=== PATIENT | female | born 1945 | race African-American/Black ===

== ENCOUNTER 2018-02-13 11:49 | Emergency (ER) | payer MEDICARE, MEDICAID ==
[~2018-02-13] VITALS: Ht 165.1 cm; Wt 78.0 kg
[~2018-02-13 11:49] MED LIST: COLACE100 MG ORAL; DAILY VITE1 EACH ORAL; IBUPROFEN200 MG ORAL; LEVAQUIN500 MG ORAL; MIRALAX17 GM ORAL; MULTIVITAMINS1 EAC2 ORAL; NAPROXEN25 G1 MC; NAPROXEN500 M2 ORAL; NORVASC5 MG ORAL; PROTONIX40 M1 IV; PROTONIX40 MG ORAL; TRAMADOL HCL100 M2 ORAL
[2018-02-13 12:00] VITALS: BP 152/100
[2018-02-13] MEDS ORDERED: PROMETHAZI6.25 MG/2 ORAL (12:01)
[2018-02-13] MEDS ORDERED: LORATADINE10 M2 PO (12:01)
[2018-02-13] MEDS ORDERED: TRAMADOL HCL50 MG ORAL (12:01)
[2018-02-13] MEDS ORDERED: GLIPIZIDE5 MG ORAL (12:01)
[2018-02-13] MEDS ORDERED: Metoclopramide 10mg/2ml Inj IVP ONE (12:15)
[2018-02-13] MEDS ORDERED: DiphenhydrAMINE 50mg/ml Inj IVP ONE (12:15)
--- NOTE | 2018-02-13 13:21 | Diagnostic Imaging Report ---
Indications: Dizziness, nausea, vomiting, headache Technique: Spiral acquisitions obtained through the brain. Angled axial and coronal 5 x 5 mm slices were reconstructed. Total dose length product 1326.69 mGycm. CTDI vol(s) 70.38 mGy. Dose reduction achieved using automated exposure control Comparison: None. Findings: There is enlargement of the ventricles and, to a lesser extent, the extra-axial CSF spaces. No acute intracranial hemorrhage nor edema. No mass effect nor midline shift. Old lacunar infarct is seen in the left meza radiata. There is periventricular deep white matter low-attenuation. Visualized orbits and sinuses are unremarkable. The mastoids are clear. The calvarium is intact. Impression: Negative for acute intracranial bleed or mass effect Ventriculomegaly. 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
[2018-02-13 13:25] LABS: BASOPHILS % (AUTO) 0.9 % (0.0-2.0); EOSINOPHILS % (AUTO) 0.3 % (0.0-3.0); HEMATOCRIT 45.3 % (37.0-47.0); HEMOGLOBIN 14.5 G/DL (12.0-16.0); LYMPHOCYTES % (AUTO) 12.7 % (20.0-45.0); MEAN CORPUSCULAR VOLUME 80 FL (80-99); MONOCYTES % (AUTO) 7.1 % (1.0-10.0); PLATELET COUNT 251 K/UL (150-450); RED BLOOD COUNT 5.63 M/UL (4.20-5.40); WHITE BLOOD COUNT 9.4 K/UL (4.8-10.8)
[2018-02-13 13:32] LABS: ANION GAP 15 mmol/L (5-15); BLOOD UREA NITROGEN 10 mg/dL (7-18); CALCIUM 10.2 MG/DL (8.5-10.1); CARBON DIOXIDE 22 MMOL/L (21-32); CHLORIDE 98 MMOL/L (98-107); CREATININE 0.8 MG/DL (0.55-1.30); POTASSIUM 3.7 MMOL/L (3.5-5.1); SODIUM 135 MMOL/L (136-145)
[2018-02-13 13:37] LABS: ALANINE AMINOTRANSFERASE 21 U/L (12-78); ALBUMIN 3.8 G/DL (3.4-5.0); ALBUMIN/GLOBULIN RATIO 0.6 (1.0-2.7); ALKALINE PHOSPHATASE 116 U/L (46-116); ASPARTATE AMINO TRANSFERASE 18 U/L (15-37); BILIRUBIN,TOTAL 0.7 MG/DL (0.2-1.0)
--- NOTE | 2018-02-13 14:11 | Emergency Room Report ---
History of Present Illness General Chief Complaint: Vomiting Source: Patient Present Illness HPI 72yo F p/w retroorbital headache, generalized weakness and R breast area pain in the site of her mastectomy. She reports this is the same pain she's had ever since having a mastectomy. Allergies: Coded Allergies: ACETAMINOPHEN (Verified Allergy, Unknown, 04/12/16) HYDROCODONE (Verified Allergy, Unknown, 04/12/16) Uncoded Allergies: NORCO (Allergy, Unknown, 04/12/16) Patient History Past Medical History: see triage record Last Menstrual Period: n/a Reviewed Nursing Documentation: PMH: Agreed; PSxH: Agreed Nursing Documentation-PMH Hx Cardiac Problems: Yes Hx Hypertension: Yes Hx Diabetes: No - BORDERLINE DIABETES Hx Cancer: No Hx Gastrointestinal Problems: Yes Hx Neurological Problems: No Review of Systems All Other Systems: negative except mentioned in HPI Physical Exam Vital Signs Date Time Temp Pulse Resp B/P (MAP) Pulse Ox O2 Delivery O2 Flow Rate FiO2 02/13/18 11:53 97.7 101 18 152/100 96 Room Air 97.7 Sp02 EP Interpretation: reviewed, normal General Appearance: no apparent distress, alert, non-toxic Head: normocephalic Eyes: bilateral eye normal inspection, bilateral eye PERRL, bilateral eye EOMI ENT: normal ENT inspection, hearing grossly normal, normal pharynx, no angioedema, normal voice, moist mucus membranes Neck: normal inspection, full range of motion, supple, supple/symm/no masses Respiratory: chest non-tender - R mastectomy site scar well-healed, lungs clear , normal breath sounds, chest symmetrical, palpation of chest normal Cardiovascular #1: normal peripheral pulses, regular rate, rhythm Cardiovascular #2: 2+ radial (R), 2+ radial (L) Gastrointestinal: normal inspection, non tender, soft, no mass, no guarding, no rebound Rectal: deferred Genitourinary: normal inspection, no CVA tenderness Musculoskeletal: back normal, gait/station normal, normal range of motion, non- tender, no calf tenderness Neurologic: alert, responsive, cvir tech III-XII nml as tested, motor strength/tone normal, sensory intact, speech normal Psychiatric: judgement/insight normal, memory normal, mood/affect normal, no suicidal/homicidal ideation Skin: normal color, no rash, warm/dry, normal turgor Lymphatic: no adenopathy Medical Decision Making Diagnostic Impression: Primary Impression: Vomiting ER Course Patient's headache has improved, actually even prior to my interventions although she was given Reglan and Benadryl, do not suspect small bowel obstruction as she is not having obstipation nor abdominal distention nor abdominal pain or tenderness. I do believe she is having migrainous-type headache with nausea and vomiting retrocrural headache, however that improved without interventions as mentioned. Her right sided chest wall pain I do believe is secondary to neuropathic pain secondary to her mastectomy, the area does not appear to be pathologic currently. Do not consistent with PE, and her electrolytes unremarkable. Her EKG chest x-ray and head CT all fairly unremarkable. She will be discharged with reassurance and PMD f/u. EKG Diagnostic Results EKG Time: 12:27 EP Interpretation: no st-t changes, no twi Rate: normal Rhythm: NSR ST Segments: no acute changes ASA given to the pt in ED: Yes Rhythm Strip Diag. Results Rhythm Strip Time: 14:10 EP Interpretation: yes Rate: 95 Rhythm: NSR, no PVC's, no ectopy Chest X-Ray Diagnostic Results Chest X-Ray Diagnostic Results : Chest X-Ray Ordered: Yes # of Views/Limited/Complete: 1 View Indication: Other EP Interpretation: Yes Interpretation: no consolidation, no effusion, no pneumothorax, no acute cardiopulmonary disease Impression: No acute disease Electronically Signed by: Giovanny Lofton MD CT/MRI/US Diagnostic Results CT/MRI/US Diagnostic Results : Imaging Test Ordered: ct head Impression no acute disease Last Vital Signs Date Time Temp Pulse Resp B/P (MAP) Pulse Ox O2 Delivery O2 Flow Rate FiO2 02/13/18 12:00 97.7 18 152/100 96 Room Air 97.7 02/13/18 11:53 101 Status: improved Disposition: HOME, SELF-CARE Condition: Stable Referrals: STEPAN FORBES (PCP) GIOVANNY LOFTON M.D Feb 13, 2018 14:11
--- NOTE | 2018-02-13 14:15 | Diagnostic Imaging Report ---
Indication: Cough, vomiting Technique: One view of the chest Comparison: 04/12/2016 Findings: Lungs and pleural spaces are clear. Heart size is normal . No significant interim change Impression: No acute process
[2018-02-13 14:43] LABS: APPEARANCE,URINE CLEAR; BILIRUBIN, URINE NEGATIVE (NEGATIVE); COLOR,URINE PALE YELLOW; GLUCOSE, URINE (UA) 1+ (NEGATIVE); KETONES,URINE 3+ (NEGATIVE); LEUKOCYTE ESTERASE ,URINE NEGATIVE (NEGATIVE); NITRITE,URINE NEGATIVE (NEGATIVE); PH,URINE 6 (4.5-8.0); PROTEIN,URINE 2+ (NEGATIVE); UROBILINOGEN,URINE NORMAL MG/DL (0.0-1.0)
[2018-02-13 14:47] VITALS: BP 197/90
[2018-02-13 15:47] VITALS: BP 197/99
--- NOTE | 2018-03-01 13:51 | Cardiology Report ---
APPROVED REPORT EKG Measurement Heart [id number] Normal sinus rhythm Possible Left atrial enlargement Anteroseptal infarct, age undetermined Abnormal ECG
== END 2018-02-13 15:45 | disposition home or self-care (01) ==
LOC: EMR 12:20
DX: R11.10 Vomiting, unspecified (principal); R53.1 Weakness; R51 Headache; I10 Essential (primary) hypertension; Z88.6 Allergy status to analgesic agent; G93.89 Other specified disorders of brain
CPT/HCPCS: 36415; 70450; 71045; 80053; 81003; 83605; 84484; 85025; 93005; 96361; 96374; 96375; 99284; J1200; J2765

== ENCOUNTER 2018-03-07 18:44 | Inpatient (IN) | payer MEDICAID, MEDICARE, OTHER ==
[~2018-03-07] VITALS: Ht 167.6 cm; Wt 73.5 kg
[~2018-03-07 18:44] MED LIST changes: +GLIPIZIDE5 MG ORAL; +LORATADINE10 M2 PO; +PROMETHAZI6.25 MG/2 ORAL; +TRAMADOL HCL50 MG ORAL
[2018-03-07] MEDS ORDERED: DiphenhydrAMINE 50mg/ml Inj IVP ONE (19:30)
[2018-03-07] MEDS ORDERED: Metoclopramide 10mg/2ml Inj IVP ONE (19:30)
[2018-03-07 19:40] LABS: BASOPHILS % (AUTO) 1.1 % (0.0-2.0); HEMATOCRIT 35.7 % (37.0-47.0); HEMOGLOBIN 11.6 G/DL (12.0-16.0); LYMPHOCYTES % (AUTO) 8.1 % (20.0-45.0); MEAN CORPUSCULAR VOLUME 81 FL (80-99); MONOCYTES % (AUTO) 7.3 % (1.0-10.0); NEUTROPHILS % (AUTO) 83.5 % (45.0-75.0); PLATELET COUNT 290 K/UL (150-450); RED BLOOD COUNT 4.42 M/UL (4.20-5.40); RED CELL DISTRIBUTION WIDTH 12.3 % (11.6-14.8); WHITE BLOOD COUNT 16.4 K/UL (4.8-10.8)
[2018-03-07 20:00] VITALS: BP 142/85
[2018-03-07 20:01] LABS: ANION GAP 11 mmol/L (5-15); BLOOD UREA NITROGEN 9 mg/dL (7-18); CALCIUM 10.1 MG/DL (8.5-10.1); CARBON DIOXIDE 27 MMOL/L (21-32); CHLORIDE 100 MMOL/L (98-107); CREATININE 0.8 MG/DL (0.55-1.30); POTASSIUM 3.3 MMOL/L (3.5-5.1); SODIUM 138 MMOL/L (136-145)
[2018-03-07] MEDS ORDERED: TYLENOL EXTRA500 MG ORAL (20:01)
[2018-03-07 20:06] LABS: ALANINE AMINOTRANSFERASE 15 U/L (12-78); ALBUMIN 3.5 G/DL (3.4-5.0); ALBUMIN/GLOBULIN RATIO 0.7 (1.0-2.7); ALKALINE PHOSPHATASE 102 U/L (46-116); ASPARTATE AMINO TRANSFERASE 17 U/L (15-37); BILIRUBIN,TOTAL 0.7 MG/DL (0.2-1.0)
[2018-03-07 20:11] LABS: INR 1.1 (0.9-1.1)
--- NOTE | 2018-03-07 20:28 | Emergency Room Report ---
History of Present Illness General Chief Complaint: Vomiting Source: Patient Present Illness HPI Patient presents with many days of vomiting. She can't keep fluids down. She feels dehydrated. She still has been urinating a lot and her daughter says her blood sugars of been high at home. She does take insulin and metformin. She does feel dizzy when standing. She states she has been taking medicine for nausea without any help. The patient's receiving chemotherapy for breast cancer. The patient was recently admitted for pancreatitis related to cholecystitis. She was told recently that she has a pancreatic cyst. She denies any abdominal pain at this time. She's been moving her bowels but decreased amount because she's not eating at this time. No dysuria. She denies any fevers or chills, chest pain, rashes, headache, joint pain. Seen in January for migraine and chest wall pain. Allergies: Coded Allergies: ACETAMINOPHEN (Verified Allergy, Unknown, 04/12/16) HYDROCODONE (Verified Allergy, Unknown, 04/12/16) Uncoded Allergies: NORCO (Allergy, Unknown, 04/12/16) Patient History Past Medical History: see triage record Past Surgical History: florin, hysterectomy, other - bilateral breast surgeries for CA, masectomy R, IVC filter Social History: Denies: smoking - former Social History Narrative with family Now: No Reviewed Nursing Documentation: PMH: Agreed; PSxH: Agreed Nursing Documentation-PMH Hx Cardiac Problems: Yes Hx Hypertension: Yes Hx Diabetes: No - BORDERLINE DIABETES Hx Cancer: No Hx Gastrointestinal Problems: Yes Hx Neurological Problems: No Review of Systems All Other Systems: negative except mentioned in HPI Physical Exam Vital Signs Date Time Temp Pulse Resp B/P (MAP) Pulse Ox O2 Delivery O2 Flow Rate FiO2 03/07/18 18:56 95 16 127/82 99 Room Air Sp02 EP Interpretation: reviewed, normal General Appearance: no apparent distress, alert - eyes closed except when questioned, GCS 15, Chronically Ill Eyes: bilateral eye PERRL, bilateral eye conjunctivae pale ENT: dry mucus membranes Neck: supple Respiratory: chest non-tender, lungs clear, normal breath sounds, other - R masectomy Cardiovascular #1: regular rate, rhythm Cardiovascular #2: 2+ radial (R) Gastrointestinal: non tender, soft, no mass, decreased bowel sounds Genitourinary: no CVA tenderness Musculoskeletal: digits/nails normal, normal range of motion, non-tender Neurologic: alert, oriented x3, motor strength/tone normal, DTRs symmetric, sensory intact, speech normal Psychiatric: depressed affect Skin: warm/dry, pallor Medical Decision Making Diagnostic Impression: Primary Impression: Intractable vomiting Qualified Codes: R11.2 - Nausea with vomiting, unspecified Additional Impressions: Pancreatitis Qualified Codes: K86.1 - Other chronic pancreatitis Diabetes Qualified Codes: E11.8 - Type 2 diabetes mellitus with unspecified complications UTI (urinary tract infection) Qualified Codes: N30.00 - Acute cystitis without hematuria Hypokalemia Dehydration ER Course Patient presents with persistent vomiting and signs and sy of dehydration. DDx : pancreatitis, gastritis, GItis, gastroparesis, electrolyte abnormalities, medication/chemo related vomiting, occult infection amongst others. Evaluation with EKG, CXR, Abd films, labs. Treatment with IV hydration, reglan, benadryl, pepcid. Declines pain medication. EKG without injury. CXR no infiltrate. Abd paucity of gas. Labs with elevated WBC, min anemia (though consider dehydration), normal renal function, slightly elevated glucose, slightly elevated lipase. Improved with treatment, though still reluctant to take PO. Discussed with Dr. Gu covering for Dr. Hernandez who agrees with admission. Late return of urine with pyuria. Antibiotics ordered by Dr. Gu. Laboratory Tests Test 03/07/18 19:31 03/07/18 23:36 White Blood Count 16.4 K/UL (4.8-10.8) H Red Blood Count 4.42 M/UL (4.20-5.40) Hemoglobin 11.6 G/DL (12.0-16.0) L Hematocrit 35.7 % (37.0-47.0) L Mean Corpuscular Volume 81 FL (80-99) Mean Corpuscular Hemoglobin 26.3 PG (27.0-31.0) L Mean Corpuscular Hemoglobin Concent 32.6 G/DL (32.0-36.0) Red Cell Distribution Width 12.3 % (11.6-14.8) Platelet Count 290 K/UL (150-450) Mean Platelet Volume 5.7 FL (6.5-10.1) L Neutrophils (%) (Auto) 83.5 % (45.0-75.0) H Lymphocytes (%) (Auto) 8.1 % (20.0-45.0) L Monocytes (%) (Auto) 7.3 % (1.0-10.0) Eosinophils (%) (Auto) 0.0 % (0.0-3.0) Basophils (%) (Auto) 1.1 % (0.0-2.0) Prothrombin Time 11.5 SEC (9.30-11.50) Prothrombin Time INR 1.1 (0.9-1.1) PTT 29 SEC (23-33) Sodium Level 138 MMOL/L (136-145) Potassium Level 3.3 MMOL/L (3.5-5.1) L Chloride Level 100 MMOL/L (98-107) Carbon Dioxide Level 27 MMOL/L (21-32) Anion Gap 11 mmol/L (5-15) Blood Urea Nitrogen 9 mg/dL (7-18) Creatinine 0.8 MG/DL (0.55-1.30) Estimate Glomerular Filtration Rate mL/min (>60) Glucose Level 159 MG/DL (74-106) H Calcium Level 10.1 MG/DL (8.5-10.1) Total Bilirubin 0.7 MG/DL (0.2-1.0) Aspartate Amino Transferase (AST) 17 U/L (15-37) Alanine Aminotransferase (ALT) 15 U/L (12-78) Alkaline Phosphatase 102 U/L (46-116) Troponin I 0.000 ng/mL (0.000-0.056) Total Protein 8.6 G/DL (6.4-8.2) H Albumin 3.5 G/DL (3.4-5.0) Globulin 5.1 g/dL Albumin/Globulin Ratio 0.7 (1.0-2.7) L Lipase 521 U/L (73-393) H Urine Color Pale yellow Urine Appearance Cloudy Urine pH 6 (4.5-8.0) Urine Specific [place] 1.015 (1.005-1.035) Urine Protein 2+ (NEGATIVE) H Urine Glucose (UA) 2+ (NEGATIVE) H Urine Ketones 3+ (NEGATIVE) H Urine Occult Blood 1+ (NEGATIVE) H Urine Nitrite Negative (NEGATIVE) Urine Bilirubin Negative (NEGATIVE) Urine Urobilinogen Normal MG/DL (0.0-1.0) Urine Leukocyte Esterase 2+ (NEGATIVE) H Urine RBC 2-4 /HPF (0 - 2) H Urine WBC Tntc /HPF (0 - 2) H Urine Squamous Epithelial Cells Many /LPF (NONE/OCC) H Urine Bacteria Moderate /HPF (NONE) H EKG Diagnostic Results Rate: normal Rhythm: NSR ST Segments: no acute changes Rhythm Strip Diag. Results EP Interpretation: yes Rhythm: NSR, no PVC's, no ectopy Chest X-Ray Diagnostic Results Chest X-Ray Diagnostic Results : Chest X-Ray Ordered: Yes # of Views/Limited/Complete: 1 View Indication: Other Interpretation: no consolidation, no effusion, no pneumothorax Impression: No acute disease Electronically Signed by: Gus Herron MD Other X-Ray Diagnostic Results Other X-Ray Diagnostic Results : X-Ray ordered: abd # of Views/Limited Vs Complete: 2 View Indication: Other Interpretation: nonspecific bowel gas, no sbo, other - Ca++ RUQ, clips, IVC filter Impression: Other Electronically Signed by: Gus Herron MD Last Vital Signs Date Time Temp Pulse Resp B/P (MAP) Pulse Ox O2 Delivery O2 Flow Rate FiO2 03/08/18 00:00 98.2 94 17 151/90 (110) 96 98.2 03/07/18 23:56 Room Air Status: improved Disposition: ADMITTED INPATIENT Condition: Serious Referrals: STEPAN FORBES (PCP) Gus Herron M.D. Mar 07, 2018 20:28
[2018-03-07 23:56] VITALS: BP 167/77
[2018-03-08] VITALS (7 sets, daily range): BP systolic 135–167; BP diastolic 77–93
[2018-03-08 00:23] LABS: BILIRUBIN, URINE NEGATIVE (NEGATIVE); COLOR,URINE PALE YELLOW; GLUCOSE, URINE (UA) 2+ (NEGATIVE); KETONES,URINE 3+ (NEGATIVE); LEUKOCYTE ESTERASE ,URINE 2+ (NEGATIVE); NITRITE,URINE NEGATIVE (NEGATIVE); PH,URINE 6 (4.5-8.0); PROTEIN,URINE 2+ (NEGATIVE); UROBILINOGEN,URINE NORMAL MG/DL (0.0-1.0)
[2018-03-08 00:48] LABS: APPEARANCE,URINE CLOUDY
[2018-03-08] MEDS ORDERED: Metoclopramide 10mg/2ml Inj IVP PRN ×2 (01:00→03:03)
[2018-03-08] MEDS ORDERED: oxyCODONE 5mg IR tab ORAL PRN (01:00)
[2018-03-08] MEDS ORDERED: Hydromorphone 0.5mg/0.5ml inj IVP PRN (01:00)
[2018-03-08] MEDS: traMADol 50mg tab ORAL PRN ×3 (02:24→21:20)
[2018-03-08] MEDS: Zosyn 3.375gm q8h **Extended infusion IVPB SCH ×6 (02:41→18:42)
[2018-03-08] MEDS: NovoLOG Insulin Flexpen SUBQ SCH ×4 (06:11→21:22)
[2018-03-08 06:59] LABS: BASOPHILS % (AUTO) 0.5 % (0.0-2.0); HEMATOCRIT 30.5 % (37.0-47.0); HEMOGLOBIN 9.9 G/DL (12.0-16.0); LYMPHOCYTES % (AUTO) 9.1 % (20.0-45.0); MEAN CORPUSCULAR VOLUME 80 FL (80-99); MONOCYTES % (AUTO) 7.7 % (1.0-10.0); NEUTROPHILS % (AUTO) 82.8 % (45.0-75.0); PLATELET COUNT 269 K/UL (150-450); RED BLOOD COUNT 3.82 M/UL (4.20-5.40); RED CELL DISTRIBUTION WIDTH 12.6 % (11.6-14.8); WHITE BLOOD COUNT 14.2 K/UL (4.8-10.8)
[2018-03-08 07:54] LABS: ALANINE AMINOTRANSFERASE 13 U/L (12-78); ALBUMIN 2.7 G/DL (3.4-5.0); ALBUMIN/GLOBULIN RATIO 0.6 (1.0-2.7); ALKALINE PHOSPHATASE 79 U/L (46-116); ANION GAP 9 mmol/L (5-15); ASPARTATE AMINO TRANSFERASE 14 U/L (15-37); BILIRUBIN,TOTAL 0.6 MG/DL (0.2-1.0); BLOOD UREA NITROGEN 6 mg/dL (7-18); CALCIUM 8.9 MG/DL (8.5-10.1); CARBON DIOXIDE 25 MMOL/L (21-32); CHLORIDE 102 MMOL/L (98-107); CREATININE 0.7 MG/DL (0.55-1.30); SODIUM 136 MMOL/L (136-145)
[2018-03-08] MEDS: Docusate 100mg cap ORAL SCH ×2 (09:23→18:14)
[2018-03-08] MEDS: Heparin 5000 units/ml inj SUBQ SCH ×2 (09:25→21:21)
--- NOTE | 2018-03-08 10:16 | Diagnostic Imaging Report ---
Indication: Abdominal pain Technique: One view of the chest Comparison: 02/13/2018 Findings: Inspiration is suboptimal. There are small bilateral pleural effusions. There are bilateral basilar atelectatic changes. There are questionable cystic spaces in the right perihilar region. The heart size is upper limits of normal. The upper mediastinum is unremarkable Impression: Hypoventilatory exam, with bilateral basilar atelectatic changes Probable small bilateral pleural effusions
--- NOTE | 2018-03-08 10:17 | Diagnostic Imaging Report ---
Indication: Abdominal pain Technique: Supine view of the abdomen Comparison: none Findings: Unremarkable bowel gas pattern. There is an inferior vena cava filter noted. Contrast, presumably from an earlier contrast study, is seen within colonic diverticula. No unusual masses or calcifications Impression: No acute process
--- NOTE | 2018-03-08 14:30 | History and Physical ---
History & Physical (DB) History & Physical History & Physical DICT [id number] Esteban Gu MD Mar 08, 2018 14:30
[2018-03-08] MEDS ORDERED: NS 275ml ONE (16:09)
--- NOTE | 2018-03-08 16:11 | Diagnostic Imaging Report ---
Indication: Nausea, vomiting, elevated lipase Technique: Ford-scale and duplex images of the upper abdomen were obtained Comparison: Abdomen pelvis CT dated 04/12/2016 Findings: Gallbladder is surgically absent. Sonographic Martel's sign is negative. Common bile duct measures 5 mm in diameter. No intrahepatic biliary ductal dilatation. Liver demonstrates normal echogenicity, no focal abnormality. Portal vein and hepatic veins are patent. The pancreas demonstrates a large cyst in the tail which measures 11.3 x 6.5 cm. This is not evident on the previous CT. Spleen is unremarkable. Left kidney measures 10.1 cm in length. Right kidney measures 10 cm length. Both kidneys demonstrate normal echogenicity. There is no hydronephrosis. Questionable 9 cm cyst seen in the left kidney, suspect artifactual as it is not visible on the prior CT . Abdominal aorta is partially obscured by bowel gas, visualized portions are non-aneurysmal . There is a small amount of ascites fluid adjacent to the spleen. There is a right-sided pleural effusion Impression: 11.3 x 6.5 cm cystic pancreatic tail mass. Most likely a pseudocyst given stated clinical history of pancreatitis. The possibility of cystic pancreatic neoplasm should also be considered. Correlate with previous studies, consider pancreatic protocol CT or MRI for better characterization if clinically indicated Prior cholecystectomy. Negative for dilated ducts Right pleural effusion Trace ascites
--- NOTE | 2018-03-08 16:34 | Consultation ---
Consult Note Consult Note Hematology/Oncology Consult REEdward WEINSTEIN: Nixon DOS: 03/08/18 RFC: Metastatic breast ca HPI Pleasant 72y old female Patient presents with many days of vomiting. She can't keep fluids down. She feels dehydrated. She still has been urinating a lot and her daughter says her blood sugars of been high at home. She does take insulin and metformin. She does feel dizzy when standing. She states she has been taking medicine for nausea without any help. The patient's receiving chemotherapy for breast cancer. The patient was recently admitted for pancreatitis related to cholecystitis. She was told recently that she has a pancreatic cyst. She denies any abdominal pain at this time. She's been moving her bowels but decreased amount because she's not eating at this time. No dysuria. she denies any fevers or chills, chest pain, rashes, headache, joint pain. Seen in January for migraine and chest wall pain. Coded Allergies: ACETAMINOPHEN (Verified Allergy, Unknown, 04/12/16) HYDROCODONE (Verified Allergy, Unknown, 04/12/16) Uncoded Allergies: NORCO (Allergy, Unknown, 04/12/16) Patient History Past Medical History: see triage record Past Surgical History: florin, hysterectomy, other - bilateral breast surgeries for CA, masectomy R, IVC filter Social History: Denies: smoking - former Social History Narrative with family Now: No Reviewed Nursing Documentation: PMH: Agreed; PSxH: Agreed Nursing Documentation-PMH Hx Cardiac Problems: Yes Hx Hypertension: Yes Hx Diabetes: No - BORDERLINE DIABETES Hx Cancer: No Hx Gastrointestinal Problems: Yes Hx Neurological Problems: No Review of Systems All Other Systems: negative except mentioned in HPI ER Physical Exam - General Physical Exam Vital Signs Date Time Temp Pulse Resp B/P (MAP) Pulse Ox O2 Delivery O2 Flow Rate FiO2 03/07/18 18:56 95 16 127/82 99 Room Air Sp02 EP Interpretation: reviewed, normal General Appearance: no apparent distress, alert - eyes closed except when questioned, GCS 15, Chronically Ill Eyes: bilateral eye PERRL, bilateral eye conjunctivae pale ENT: dry mucus membranes Neck: supple Respiratory: chest non-tender, lungs clear, other - R masectomy Cardiovascular #1: regular rate, rhythm Cardiovascular #2: 2+ radial (R) Gastrointestinal: non tender, soft, no mass, decreased bowel sounds Genitourinary: no CVA tenderness Musculoskeletal: digits/nails normal, normal range of motion, non-tender Neurologic: alert, oriented x3, motor strength/tone normal Psychiatric: depressed affect Skin: warm/dry, pallor ER MDM/Plan # Metastatic breast cancer on chemotherapy to continue once discharge --> liver panel, chem reviewed, will need further review prior to reinitiation --> imaging q3-q6 months with Pet/Ct as per onco --> tumor markers same as above # Anemia of chronic disease --> panel review if drops to <8 # Dvt s/p ivc filter --> no recurrence of pe/dvt at this time # Dehydration with Intractable vomiting - with hx pancreatitis --> zofran prn basis # Diabetes --> a1c goal <7 # UTI (urinary tract infection) --> continue po abx # Hypokalemia Greatly appreciate consultation. Tito Choudhury MD Mar 08, 2018 16:34
--- NOTE | 2018-03-08 19:00 | Consultation ---
DATE OF CONSULTATION: 03/08/2018 GASTROENTEROLOGY CONSULTATION CONSULTING PHYSICIAN: Rhett Agustin M.D. REFERRING PHYSICIAN: Bernard Hernandez M.D. REASON FOR CONSULTATION: Abdominal pain. HISTORY OF PRESENT ILLNESS: This is a very pleasant, unfortunate female with past medical history of breast cancer, status post right mastectomy, now on chemotherapy, first dose was given end of January, she is due for the next one on Sunday, who complained of abdominal pain and vomiting. The patient has history of pancreatitis. She stated that pancreatitis in the past was attributed to gallbladder. She had a gallbladder surgery in April 2017, but she feels again she might have a mild flare of pancreatitis. PAST MEDICAL HISTORY: 1. History of breast cancer, status post right mastectomy and chemo. 2. Pancreatitis. 3. History of cholecystectomy for above. 4. History of colonic polyps in 2013. 5. Diverticulosis. 6. Anemia. 7. Diabetes. 8. Hiatal hernia. 9. History of IVC filter placement. ALLERGIES: Acetaminophen, hydrocodone, and [place]. MEDICATIONS: Please see medication reconciliation list. SOCIAL HISTORY: The patient denies any tobacco, alcohol, or illicit drug abuse. FAMILY HISTORY: Noncontributory. PAST SURGICAL HISTORY: As dictated above. PHYSICAL EXAMINATION: VITAL SIGNS: Temperature is 99.3, pulse is 91, respirations 20, blood pressure is 160/83. HEENT: Normocephalic and atraumatic. Mildly pale conjunctivae. NECK: Supple. No evidence of obvious lymphadenopathy. CARDIOVASCULAR: Tachycardic. Regular rhythm. Plus S1, S2. No obvious murmur. LUNGS: Decreased breath sounds bilaterally and diffusely, more on the right compared to left. ABDOMEN: Soft. Bowel sounds are hypoactive. There is tenderness to palpation in the epigastric area. No rebound. No guarding. No peritoneal sign. EXTREMITIES: No cyanosis, no clubbing, no edema. LABORATORY DATA: White count 14, hemoglobin 9.9, hematocrit 30, platelet count is 269,000. Chem-7, sodium 136, potassium 3.0, BUN 6, creatinine 0.7, glucose is 144. ASSESSMENT: This is a 72-year-old female with numerous medical problems as dictated above, who presented to the hospital with nausea, vomiting, abdominal pain, with elevated amylase and lipase. At this time, blood work and symptoms are consistent with possibility of the pancreatitis. PLAN: Given the patient is feeling better, we are going to start her on liquid diet and advance as tolerated. Repeat amylase and lipase for tomorrow. Consider CT if the patient has persistent symptoms or persistently elevated amylase and lipase. In terms of anemia, we will start the workup. We will send the stool for OB, iron panel, B12, folate, and we will treat accordingly. I want to thank Dr. Hernandez for this kind referral. Rhett Agustin M.D. DR: Sally JOB#: [id number] CC: Bernard Hernandez M.D.; Fax#: [phone]
--- NOTE | 2018-03-08 20:30 | Consultation ---
DATE OF CONSULTATION: 03/08/2018 INFECTIOUS DISEASE CONSULTATION CONSULTING PHYSICIAN: Rafael Crandall M.D. REFERRING PHYSICIANS: 1. Esteban Gu M.D. 2. Bernard Hernandez M.D. REASON FOR CONSULTATION: Leukocytosis. HISTORY OF PRESENTING ILLNESS: This is a 72-year-old lady with history of diabetes, breast cancer status post mastectomy, and cholecystectomy, who comes in with vomiting. She has also been urinating a lot and apparently her blood sugars have been high at home. She also has dizziness. She was seen in [facility] where she was found to have leukocytosis and an Infectious Diseases consultation has been obtained for antibiotics. PAST MEDICAL HISTORY: 1. History of breast cancer. 2. Status post mastectomy and chemotherapy. 3. History of cholecystectomy. 4. History of hysterectomy. 5. History of DVT, status post IVC filter placement. 6. History of pancreatitis. 7. History of diabetes. MEDICATIONS: As an inpatient, the patient is on Protonix, subcutaneous heparin, docusate, amlodipine, insulin, Reglan, Zofran, Zosyn, tramadol, Benadryl, and ibuprofen. ALLERGIES: [place]. SOCIAL HISTORY: She used to be a smoker. She does not smoke any more. No history of alcohol or drug use. FAMILY HISTORY: Positive for breast cancer in her mother and sister. REVIEW OF SYSTEMS: RESPIRATORY: She denies any fever, chills, cough, shortness of breath, or chest pain. CARDIAC: No chest pain. No palpitations. She does feel dizzy. No syncope. GASTROINTESTINAL: She used to have vomiting. No abdominal pain or diarrhea. PHYSICAL EXAMINATION: VITAL SIGNS: Temperature of 98.1 degrees, T-max of 98.2 degrees, pulse of 91, respiratory rate 16, blood pressure 162/83, and O2 saturation of 97%. HEENT: Pupils equally reactive to light and accommodation. Mouth appears clean without thrush. NECK: Supple. No adenopathy. No JVD. CARDIOVASCULAR: Regular rate and rhythm. No murmurs. LUNGS: Clear to auscultation bilaterally. No crackles. No wheezes. ABDOMEN: Soft and nontender. No organomegaly. EXTREMITIES: No cyanosis, no clubbing, and no edema. LABORATORY AND DIAGNOSTIC DATA: White count of 16 yesterday, white count of 14.2 today, hemoglobin 9.9, hematocrit 30.5, MCV 80, and platelet count of 269,000 with neutrophils of 82%. Sodium 136, potassium 3, chloride 102, bicarbonate 25, BUN 6, creatinine 0.7, glucose 144, calcium 8.9, total bilirubin 0.6, AST 14, ALT 13, alkaline phosphatase 79, total protein 6.9, albumin 2.7, lipase of 442. UA is showing too numerous to count white cells and LE 2+. Chest x-ray is showing probable small bilateral pleural effusions, bilateral basal atelectasis noted. Abdomen x-ray is showing no acute process. Urine cultures are pending. ASSESSMENT: This is a 72-year-old lady with history of breast cancer and diabetes, who comes in with: 1. Leukocytosis that is improving. 2. Urinary tract infection. Urine cultures are pending. 3. Pancreatitis. 4. Diabetes. PLAN: 1. Continue Zosyn. 2. We will follow up cultures and adjust antibiotics accordingly. 3. We will order an ultrasound of abdomen. I would like to thank, Dr. Gu and Dr. Hernandez, for this consultation. Rafael Crandall M.D. DR: AMBREEN JOB#: [id number] CC: Nimisha Beach M.D. ; FAX#: [phone]
--- NOTE | 2018-03-08 22:00 | History and Physical Report ---
DATE OF ADMISSION: 03/07/2018 This is in coverage of Dr. Bernard Hernandez. CHIEF COMPLAINT: Vomiting. HISTORY OF PRESENT ILLNESS: The patient is a very unfortunate 72-year-old female with a history of breast cancer, status post mastectomy, currently on chemotherapy, recurrent pancreatitis, status post cholecystitis in the past, and pancreatic cyst, now presenting with several days of nausea and vomiting. She has been unable to even keep fluids down and feels dehydrated. No other complaints. No fevers, chills, headaches, dizziness, rhinorrhea, congestion, cough, shortness of breath, or diarrhea. She has been afebrile since presenting and her blood pressure has been stable. She is saturating well on room air. Her laboratories showed a leukocytosis with a white count of 16 and hypokalemia. She has a protein-calorie malnutrition. She also had a urinary tract infection. She has been [facility] to [facility] and started on Zosyn and intravenous fluids. Infectious Disease and GI consultations have been obtained. PAST MEDICAL HISTORY: 1. Breast cancer, status post mastectomy, currently on chemotherapy. 2. Recurrent pancreatitis. 3. Chronic knee and joint pain. 4. Diabetes. PAST SURGICAL HISTORY: 1. Mastectomy. 2. Cholecystectomy. ALLERGIES: Acetaminophen, hydrocodone, and [place]. MEDICATIONS: Prior to admission, medications reviewed. SOCIAL HISTORY: She denies tobacco, alcohol, or drug use. FAMILY HISTORY: Noncontributory. REVIEW OF SYSTEMS: Negative other than history of present illness. PHYSICAL EXAMINATION: VITAL SIGNS: Temperature is 98.4, pulse 90, blood pressure 167/90, respiratory rate 18, and saturating 93% on room air. GENERAL: She is a well-developed, well-nourished female, in no acute distress. Awake, alert, and oriented x3. HEENT: Normocephalic and atraumatic. Oropharynx with moist mucous membranes. NECK: Without lymphadenopathy or jugular venous distention. CHEST: Clear to auscultation bilaterally with no rales or rhonchi. HEART: Regular rate and rhythm. No murmurs, rubs, or gallops. ABDOMEN: Soft, nontender, and nondistended. EXTREMITIES: No cyanosis, clubbing, or edema. ANCILLARY DATA: White count 16.4, hemoglobin 11.6, and platelet count 290. INR is 1.1. Sodium 138, potassium 3.3, chloride 100, bicarbonate 27, BUN 9, creatinine 0.8, and glucose 159. Total bilirubin 0.7, AST 17, ALT 15, and alkaline phosphatase 102. Troponin negative. Total protein 8.9. Albumin 3.5. Lipase 521. Urine, 2+ leukocyte esterase, moderate bacteria. Imaging, chest x-ray showed some bibasilar atelectasis and small bilateral effusion. Abdominal x-ray did not show any acute process. ASSESSMENT: The patient is a 72-year-old female with a history of diabetes, breast cancer, status post mastectomy on chemotherapy, prior pancreatitis, status post cholecystectomy, now presenting with nausea and vomiting secondary to recurrent pancreatitis and urinary tract infection. PROBLEM LIST: 1. Acute on chronic pancreatitis. 2. History of pancreatic pseudocyst. 3. History of gallstone pancreatitis, status post cholecystectomy. 4. Urinary tract infection. 5. Breast cancer, status post mastectomy, currently on chemotherapy. 6. Hypertension. 7. Diabetes. 8. Hypokalemia. TREATMENT PLAN: 1. Admit to the hospital. 2. NPO. 3. IV fluid hydration. 4. Replete electrolytes. 5. Start Zosyn. 6. Follow up cultures. 7. GI evaluation. 8. Infectious Disease evaluation. 9. Sliding scale insulin. 10. Monitor volumes. 11. DVT prophylaxis, heparin subcutaneous. 12. PPI. Esteban Gu M.D. DR: KATELYNN JOB#: [id number] CC:
[2018-03-09] VITALS: BP 143/82
[2018-03-09] MEDS: Zosyn 3.375gm q8h **Extended infusion IVPB SCH ×6 (03:19→18:38)
[2018-03-09] MEDS: traMADol 50mg tab ORAL PRN ×2 (03:22→20:35)
[2018-03-09 04:00] VITALS: BP 155/94
[2018-03-09] MEDS: NovoLOG Insulin Flexpen SUBQ SCH ×4 (06:25→21:29)
[2018-03-09 07:40] LABS: BASOPHILS % (AUTO) 0.8 % (0.0-2.0); EOSINOPHILS % (AUTO) 0.1 % (0.0-3.0); HEMATOCRIT 31.4 % (37.0-47.0); HEMOGLOBIN 10.2 G/DL (12.0-16.0); LYMPHOCYTES % (AUTO) 7.8 % (20.0-45.0); MEAN CORPUSCULAR VOLUME 80 FL (80-99); MONOCYTES % (AUTO) 6.8 % (1.0-10.0); NEUTROPHILS % (AUTO) 84.4 % (45.0-75.0); PLATELET COUNT 266 K/UL (150-450); RED BLOOD COUNT 3.93 M/UL (4.20-5.40); WHITE BLOOD COUNT 14.2 K/UL (4.8-10.8)
[2018-03-09 08:00] VITALS: BP 156/90
[2018-03-09 08:03] LABS: % IRON SATURATION 13 % (15-50); ALANINE AMINOTRANSFERASE 9 U/L (12-78); ALBUMIN 2.5 G/DL (3.4-5.0); ALBUMIN/GLOBULIN RATIO 0.5 (1.0-2.7); ALKALINE PHOSPHATASE 74 U/L (46-116); AMYLASE 132 U/L (25-115); ANION GAP 9 mmol/L (5-15); ASPARTATE AMINO TRANSFERASE 14 U/L (15-37); BILIRUBIN,TOTAL 0.6 MG/DL (0.2-1.0); BLOOD UREA NITROGEN 5 mg/dL (7-18); CALCIUM 8.9 MG/DL (8.5-10.1); CARBON DIOXIDE 27 MMOL/L (21-32); CHLORIDE 101 MMOL/L (98-107); CHOLESTEROL 142 MG/DL (< 200); CREATININE 0.7 MG/DL (0.55-1.30); HDL CHOLESTEROL 37 MG/DL (40-60); IRON 21 ug/dL (50-175); POTASSIUM 3.1 MMOL/L (3.5-5.1); SODIUM 137 MMOL/L (136-145); TOTAL IRON BINDING CAPACITY 167 ug/dL (250-450); TRIGLYCERIDES 78 MG/DL (30-150)
--- NOTE | 2018-03-09 08:08 | General Progress Note ---
Assessment/Plan Problem List: (1) Pancreatic pseudocyst ICD Codes: K86.3 - Pseudocyst of pancreas SNOMED: 486708960 (2) Pancreatitis ICD Codes: K85.9 - Pancreatitis SNOMED: 83864946 Qualifiers: Qualified Codes: K86.1 - Other chronic pancreatitis (3) Diabetes ICD Codes: E11.9 - Type 2 diabetes mellitus without complications SNOMED: 21153622 Qualifiers: Qualified Codes: E11.8 - Type 2 diabetes mellitus with unspecified complications (4) Gastritis ICD Codes: K29.70 - Gastritis SNOMED: 1983961 (5) Colon polyps ICD Codes: K63.5 - Colon polyps SNOMED: 47227618 (6) Duodenitis ICD Codes: K29.80 - Duodenitis without bleeding SNOMED: 74759026 (7) Anemia ICD Codes: D64.9 - Anemia SNOMED: 831060289 Assessment/Plan ct to eval for panc pseudocyst advance diet to full liquid fu labs pain control Subjective ROS Limited/Unobtainable: Yes Allergies: Coded Allergies: ACETAMINOPHEN (Verified Allergy, Unknown, 04/12/16) HYDROCODONE (Verified Allergy, Unknown, 04/12/16) Uncoded Allergies: NORCO (Allergy, Unknown, 04/12/16) Subjective abd pain better tolerated clears Objective Last 24 Hour Vital Signs Date Time Temp Pulse Resp B/P (MAP) Pulse Ox O2 Delivery O2 Flow Rate FiO2 03/09/18 04:00 98.3 93 18 155/94 (114) 97 98.3 03/09/18 00:00 98.6 96 18 143/82 (102) 96 98.6 03/08/18 21:00 Room Air 03/08/18 20:00 98.2 94 18 140/77 (98) 96 98.2 03/08/18 16:00 98.8 92 20 152/90 (110) 94 98.8 03/08/18 13:44 135/84 (101) 03/08/18 12:00 98.4 90 18 167/93 (117) 93 98.4 03/08/18 09:24 91 162/83 03/08/18 08:15 Room Air Intake and Output 03/08/18 03/09/18 19:00 07:00 Intake Total 300 ml 1215.0 ml Balance 300 ml 1215.0 ml IV Total 100 ml 1215.0 ml Other 200 ml # Voids 3 3 Laboratory Tests 03/09/18 06:50: White Blood Count 14.2H, Red Blood Count 3.93L, Hemoglobin 10.2L, Hematocrit 31.4L, Mean Corpuscular Volume 80, Mean Corpuscular Hemoglobin 25.9L, Mean Corpuscular Hemoglobin Concent 32.3, Red Cell Distribution Width 12.0, Platelet Count 266, Mean Platelet Volume 5.8L, Neutrophils (%) (Auto) 84.4H, Lymphocytes (%) (Auto) 7.8L, Monocytes (%) (Auto) 6.8, Eosinophils (%) (Auto) 0.1, Basophils (%) (Auto) 0.8, Sodium Level 137, Potassium Level 3.1L, Chloride Level 101, Carbon Dioxide Level 27, Anion Gap 9, Blood Urea Nitrogen 5L, Creatinine 0.7, Estimat Glomerular Filtration Rate , Glucose Level 196H, Calcium Level 8.9, Iron Level 21L, Total Iron Binding Capacity 167L, Percent Iron Saturation 13L, Unsaturated Iron Binding 146, Total Bilirubin 0.6, Aspartate Amino Transf (AST/SGOT) 14L, Alanine Aminotransferase (ALT/SGPT) 9L, Alkaline Phosphatase 74, Total Protein 7.1, Albumin 2.5L, Globulin 4.6, Albumin/ Globulin Ratio 0.5L, Triglycerides Level 78, Cholesterol Level 142, LDL Cholesterol 90, HDL Cholesterol 37L, Cholesterol/HDL Ratio 3.8, Amylase Level 132H, Lipase 428H, Folate [Pending] Height (Feet): 5 Height (Inches): 6.00 Weight (Pounds): 162 General Appearance: alert EENT: normal ENT inspection Neck: supple Cardiovascular: normal rate Respiratory/Chest: decreased breath sounds Abdomen: soft, decreased bowel sounds, tender Extremities: non-tender Rhett Agustin MD Mar 09, 2018 08:08
[2018-03-09] MEDS ORDERED: Isovue-300 100ml vial INJ PRN (08:15)
--- NOTE | 2018-03-09 08:24 | Pulmonology Progress Note ---
Assessment/Plan Assessment/Plan ASSESSMENT: The patient is a 72-year-old female with a history of diabetes, breast cancer, status post mastectomy on chemotherapy, prior pancreatitis, status post cholecystectomy, now presenting with nausea and vomiting secondary to recurrent pancreatitis and urinary tract infection. PROBLEM LIST: 1. Acute on chronic pancreatitis. 2. History of pancreatic pseudocyst. 3. History of gallstone pancreatitis, status post cholecystectomy. 4. Urinary tract infection. 5. Breast cancer, status post mastectomy, currently on chemotherapy. 6. Hypertension. 7. Diabetes. 8. Hypokalemia. TREATMENT PLAN: 1. F/U CT A/P 2. CLD per GI 3. Decrease rate of IVF 4. Replete K 5. Continue Zosyn per ID 6. Follow up cultures. 7. Inc Norvasc to 10, add HCTZ 25 8. F/U heme-onc recs 9. Sliding scale insulin. 10. Monitor volumes. 11. DVT prophylaxis, heparin subcutaneous. 12. PPI. Subjective Allergies: Coded Allergies: ACETAMINOPHEN (Verified Allergy, Unknown, 04/12/16) HYDROCODONE (Verified Allergy, Unknown, 04/12/16) Uncoded Allergies: NORCO (Allergy, Unknown, 04/12/16) Subjective AFVSS x elevated BP Panc lesion noted on US, possibly pseudocyst, CT pending No F/C/N/V/D/C/abd pain/urinary complaints Objective Last 24 Hour Vital Signs Date Time Temp Pulse Resp B/P (MAP) Pulse Ox O2 Delivery O2 Flow Rate FiO2 03/09/18 04:00 98.3 93 18 155/94 (114) 97 98.3 03/09/18 00:00 98.6 96 18 143/82 (102) 96 98.6 03/08/18 21:00 Room Air 03/08/18 20:00 98.2 94 18 140/77 (98) 96 98.2 03/08/18 16:00 98.8 92 20 152/90 (110) 94 98.8 03/08/18 13:44 135/84 (101) 03/08/18 12:00 98.4 90 18 167/93 (117) 93 98.4 03/08/18 09:24 91 162/83 Intake and Output 03/08/18 03/09/18 19:00 07:00 Intake Total 300 ml 1215.0 ml Balance 300 ml 1215.0 ml IV Total 100 ml 1215.0 ml Other 200 ml # Voids 3 3 General Appearance: WD/WN, no acute distress HEENT: normocephalic, atraumatic, anicteric, mucous membranes moist Respiratory/Chest: chest wall non-tender, lungs clear, normal breath sounds, no respiratory distress, no accessory muscle use Cardiovascular: normal peripheral pulses, normal rate, regular rhythm Abdomen: normal bowel sounds, soft, non tender, no organomegaly, non distended , no mass Extremities: no cyanosis, no clubbing, no edema Laboratory Tests 03/09/18 06:50: White Blood Count 14.2H, Red Blood Count 3.93L, Hemoglobin 10.2L, Hematocrit 31.4L, Mean Corpuscular Volume 80, Mean Corpuscular Hemoglobin 25.9L, Mean Corpuscular Hemoglobin Concent 32.3, Red Cell Distribution Width 12.0, Platelet Count 266, Mean Platelet Volume 5.8L, Neutrophils (%) (Auto) 84.4H, Lymphocytes (%) (Auto) 7.8L, Monocytes (%) (Auto) 6.8, Eosinophils (%) (Auto) 0.1, Basophils (%) (Auto) 0.8, Sodium Level 137, Potassium Level 3.1L, Chloride Level 101, Carbon Dioxide Level 27, Anion Gap 9, Blood Urea Nitrogen 5L, Creatinine 0.7, Estimat Glomerular Filtration Rate , Glucose Level 196H, Calcium Level 8.9, Iron Level 21L, Total Iron Binding Capacity 167L, Percent Iron Saturation 13L, Unsaturated Iron Binding 146, Total Bilirubin 0.6, Aspartate Amino Transf (AST/SGOT) 14L, Alanine Aminotransferase (ALT/SGPT) 9L, Alkaline Phosphatase 74, Total Protein 7.1, Albumin 2.5L, Globulin 4.6, Albumin/ Globulin Ratio 0.5L, Triglycerides Level 78, Cholesterol Level 142, LDL Cholesterol 90, HDL Cholesterol 37L, Cholesterol/HDL Ratio 3.8, Amylase Level 132H, Lipase 428H, Folate [Pending] Current Medications Medications (Trade) Dose Ordered Sig/Rehan Route PRN Reason Start Time Stop Time Status Last Admin Dose Admin Amlodipine Besylate (Norvasc) 5 mg DAILY ORAL 03/08/18 09:00 04/07/18 08:59 03/08/18 09:24 Barium Sulfate (Readi-Cat 2) 450 ml NOW PRN ORAL Radiology Procedure 03/09/18 08:15 03/11/18 08:05 Dextrose (Dextrose 50%) 25 ml STAT PRN IV Hypoglycemia 03/08/18 01:00 04/07/18 00:59 Dextrose (Dextrose 50%) 50 ml STAT PRN IV Hypoglycemia 03/08/18 01:00 04/07/18 00:59 Dextrose/ Electrolytes 1,000 ml @ 100 mls/hr Q10H IV 03/08/18 02:00 04/07/18 01:59 03/09/18 06:19 Diphenhydramine HCl (Benadryl) 25 mg Q6H PRN ORAL Itching 03/08/18 01:00 04/07/18 00:59 Docusate Sodium (Colace) 100 mg TWICE A DAY ORAL 03/08/18 09:00 04/07/18 08:59 03/08/18 18:14 Heparin Sodium (Porcine) (Heparin 5000 units/ml) 5,000 units EVERY 12 HOURS SUBQ 03/08/18 09:00 04/07/18 08:59 03/08/18 21:21 Ibuprofen (Motrin) 600 mg Q4H PRN ORAL Mild Pain (Pain Scale 1-3) 03/08/18 01:00 04/07/18 00:59 Insulin Aspart (NovoLOG) BEFORE MEALS AND HS SUBQ 03/08/18 06:30 04/07/18 06:29 03/09/18 06:25 Iopamidol (Isovue-300 100ml) 100 ml NOW PRN INJ Radiology Procedure 03/09/18 08:15 03/11/18 08:14 Metoclopramide HCl (Reglan) 10 mg Q4H PRN IVP Nausea & Vomiting 03/08/18 03:03 04/07/18 03:02 Ondansetron HCl (Zofran) 4 mg Q4H PRN IVP Nausea & Vomiting 03/08/18 03:03 04/07/18 03:02 03/09/18 06:19 Pantoprazole (Protonix) 40 mg DAILY ORAL 03/08/18 09:00 04/07/18 08:59 03/08/18 09:24 Piperacillin Sod/ Tazobactam Sod 3.375 gm/Sodium Chloride 110 ml @ 27.5 mls/hr Q8H IVPB 03/08/18 03:00 03/15/18 02:59 03/09/18 03:19 Tramadol HCl (Ultram) 50 mg Q6H PRN ORAL Severe Pain (Pain Scale 7-10) 03/08/18 01:30 03/15/18 01:29 03/09/18 03:22 Esteban Gu MD Mar 09, 2018 08:24
[2018-03-09] MEDS: Docusate 100mg cap ORAL SCH ×2 (09:31→17:49)
[2018-03-09] MEDS: Heparin 5000 units/ml inj SUBQ SCH ×2 (09:32→20:37)
[2018-03-09] MEDS ORDERED: Tubing IV Secondary IV ONE (11:27)
--- NOTE | 2018-03-09 11:40 | Infectious Diseases Prog Note ---
Assessment/Plan Assessment/Plan antibiotics : zosyn A 1. pancreatitis 2. leucocytosis improving 3. breast cancer 4. diabetes mellitus P 1. continue zosyn 2. will follow up cultures Subjective Constitutional: Denies: fever, chills Respiratory: Denies: shortness of breath Gastrointestinal/Abdominal: Denies: nausea, vomiting, diarrhea Musculoskeletal: Reports: pain Allergies: Coded Allergies: ACETAMINOPHEN (Verified Allergy, Unknown, 04/12/16) HYDROCODONE (Verified Allergy, Unknown, 04/12/16) Uncoded Allergies: NORCO (Allergy, Unknown, 04/12/16) Objective Vital Signs Last 24 Hour Vital Signs Date Time Temp Pulse Resp B/P (MAP) Pulse Ox O2 Delivery O2 Flow Rate FiO2 03/09/18 09:31 89 156/90 03/09/18 08:00 97.7 89 20 156/90 (112) 96 97.7 03/09/18 08:00 Room Air 03/09/18 04:00 98.3 93 18 155/94 (114) 97 98.3 03/09/18 00:00 98.6 96 18 143/82 (102) 96 98.6 03/08/18 21:00 Room Air 03/08/18 20:00 98.2 94 18 140/77 (98) 96 98.2 03/08/18 16:00 98.8 92 20 152/90 (110) 94 98.8 03/08/18 13:44 135/84 (101) 03/08/18 12:00 98.4 90 18 167/93 (117) 93 98.4 Height (Feet): 5 Height (Inches): 6.00 Weight (Pounds): 162 Respiratory/Chest: lungs clear Cardiovascular: normal rate, regular rhythm, no gallop/murmur Abdomen: soft, non tender Extremities: no edema Microbiology Date/Time Source Procedure Growth Status 03/07/18 23:36 Urine,Clean Catch Urine Culture - Preliminary Gram Positive Cocci Resulted Laboratory Tests Test 03/09/18 06:50 White Blood Count 14.2 K/UL (4.8-10.8) H Red Blood Count 3.93 M/UL (4.20-5.40) L Hemoglobin 10.2 G/DL (12.0-16.0) L Hematocrit 31.4 % (37.0-47.0) L Mean Corpuscular Volume 80 FL (80-99) Mean Corpuscular Hemoglobin 25.9 PG (27.0-31.0) L Mean Corpuscular Hemoglobin Concent 32.3 G/DL (32.0-36.0) Red Cell Distribution Width 12.0 % (11.6-14.8) Platelet Count 266 K/UL (150-450) Mean Platelet Volume 5.8 FL (6.5-10.1) L Neutrophils (%) (Auto) 84.4 % (45.0-75.0) H Lymphocytes (%) (Auto) 7.8 % (20.0-45.0) L Monocytes (%) (Auto) 6.8 % (1.0-10.0) Eosinophils (%) (Auto) 0.1 % (0.0-3.0) Basophils (%) (Auto) 0.8 % (0.0-2.0) Sodium Level 137 MMOL/L (136-145) Potassium Level 3.1 MMOL/L (3.5-5.1) L Chloride Level 101 MMOL/L (98-107) Carbon Dioxide Level 27 MMOL/L (21-32) Anion Gap 9 mmol/L (5-15) Blood Urea Nitrogen 5 mg/dL (7-18) L Creatinine 0.7 MG/DL (0.55-1.30) Estimat Glomerular Filtration Rate mL/min (>60) Glucose Level 196 MG/DL (74-106) H Calcium Level 8.9 MG/DL (8.5-10.1) Iron Level 21 ug/dL (50-175) L Total Iron Binding Capacity 167 ug/dL (250-450) L Percent Iron Saturation 13 % (15-50) L Unsaturated Iron Binding 146 ug/dL (112-346) Total Bilirubin 0.6 MG/DL (0.2-1.0) Aspartate Amino Transf (AST/SGOT) 14 U/L (15-37) L Alanine Aminotransferase (ALT/SGPT) 9 U/L (12-78) L Alkaline Phosphatase 74 U/L (46-116) Total Protein 7.1 G/DL (6.4-8.2) Albumin 2.5 G/DL (3.4-5.0) L Globulin 4.6 g/dL Albumin/Globulin Ratio 0.5 (1.0-2.7) L Triglycerides Level 78 MG/DL (30-150) Cholesterol Level 142 MG/DL (< 200) LDL Cholesterol 90 mg/dL (<100) HDL Cholesterol 37 MG/DL (40-60) L Cholesterol/HDL Ratio 3.8 (3.3-4.4) Amylase Level 132 U/L (25-115) H Lipase 428 U/L (73-393) H Folate 23.0 NG/ML (8.6-58.9) Current Medications Medications (Trade) Dose Ordered Sig/Rehan Route PRN Reason Start Time Stop Time Status Last Admin Dose Admin Amlodipine Besylate (Norvasc) 10 mg DAILY ORAL 03/09/18 09:00 04/07/18 08:59 03/09/18 09:31 Barium Sulfate (Readi-Cat 2) 450 ml NOW PRN ORAL Radiology Procedure 03/09/18 08:15 03/11/18 08:05 Dextrose (Dextrose 50%) 25 ml STAT PRN IV Hypoglycemia 03/08/18 01:00 04/07/18 00:59 Dextrose (Dextrose 50%) 50 ml STAT PRN IV Hypoglycemia 03/08/18 01:00 04/07/18 00:59 Dextrose/ Electrolytes 1,000 ml @ 50 mls/hr Q20H IV 03/09/18 08:30 04/08/18 08:29 03/09/18 09:30 Diphenhydramine HCl (Benadryl) 25 mg Q6H PRN ORAL Itching 03/08/18 01:00 04/07/18 00:59 Docusate Sodium (Colace) 100 mg TWICE A DAY ORAL 03/08/18 09:00 04/07/18 08:59 03/09/18 09:31 Heparin Sodium (Porcine) (Heparin 5000 units/ml) 5,000 units EVERY 12 HOURS SUBQ 03/08/18 09:00 04/07/18 08:59 03/09/18 09:32 Hydrochlorothiazide (Hydrodiuril) 25 mg DAILY ORAL 03/09/18 09:00 04/08/18 08:59 03/09/18 09:31 Ibuprofen (Motrin) 600 mg Q4H PRN ORAL Mild Pain (Pain Scale 1-3) 03/08/18 01:00 04/07/18 00:59 Insulin Aspart (NovoLOG) BEFORE MEALS AND HS SUBQ 03/08/18 06:30 04/07/18 06:29 03/09/18 06:25 Iopamidol (Isovue-300 100ml) 100 ml NOW PRN INJ Radiology Procedure 03/09/18 08:15 03/11/18 08:14 Metoclopramide HCl (Reglan) 10 mg Q4H PRN IVP Nausea & Vomiting 03/08/18 03:03 04/07/18 03:02 Ondansetron HCl (Zofran) 4 mg Q4H PRN IVP Nausea & Vomiting 03/08/18 03:03 04/07/18 03:02 03/09/18 10:25 Pantoprazole (Protonix) 40 mg DAILY ORAL 03/08/18 09:00 04/07/18 08:59 03/09/18 09:31 Piperacillin Sod/ Tazobactam Sod 3.375 gm/Sodium Chloride 110 ml @ 27.5 mls/hr Q8H IVPB 03/08/18 03:00 03/15/18 02:59 03/09/18 03:19 Potassium Chloride 100 ml @ 50 mls/hr Q2H IVPB 03/09/18 10:00 03/09/18 17:59 03/09/18 09:31 Tramadol HCl (Ultram) 50 mg Q6H PRN ORAL Severe Pain (Pain Scale 7-10) 03/08/18 01:30 03/15/18 01:29 03/09/18 03:22 MAY DO Mar 09, 2018 11:40
[2018-03-09 12:00] VITALS: BP 165/93
--- NOTE | 2018-03-09 14:36 | General Progress Note ---
Assessment/Plan Status: stable Assessment/Plan # Metastatic breast cancer on chemotherapy to continue once discharge --> liver panel, chem reviewed, will need further review prior to reinitiation --> imaging q3-q6 months with Pet/Ct as per onco --> tumor markers same as above # Anemia of chronic disease --> panel review if drops to <8 --> CURRENT Hgb 10.2 # Dvt s/p ivc filter --> no recurrence of pe/dvt at this time # Dehydration with Intractable vomiting - with hx pancreatitis --> zofran prn basis # Diabetes --> a1c goal <7 # UTI --> continue po abx # Hypokalemia The time the note was entered does not necessarily correspond to the time the patient was seen. Subjective Date patient seen: Mar 09, 2018 ROS Limited/Unobtainable: Yes Hematologic/Lymphatic: Reports: anemia Allergies: Coded Allergies: ACETAMINOPHEN (Verified Allergy, Unknown, 04/12/16) HYDROCODONE (Verified Allergy, Unknown, 04/12/16) Uncoded Allergies: NORCO (Allergy, Unknown, 04/12/16) All Systems: reviewed and negative except above Subjective Pt awake and alert. No acute events. CT abd pending. Objective Last 24 Hour Vital Signs Date Time Temp Pulse Resp B/P (MAP) Pulse Ox O2 Delivery O2 Flow Rate FiO2 03/09/18 12:00 98.1 99 18 165/93 (117) 97 98.1 03/09/18 09:31 89 156/90 03/09/18 08:00 97.7 89 20 156/90 (112) 96 97.7 03/09/18 08:00 Room Air 03/09/18 04:00 98.3 93 18 155/94 (114) 97 98.3 03/09/18 00:00 98.6 96 18 143/82 (102) 96 98.6 03/08/18 21:00 Room Air 03/08/18 20:00 98.2 94 18 140/77 (98) 96 98.2 03/08/18 16:00 98.8 92 20 152/90 (110) 94 98.8 Intake and Output 03/08/18 03/09/18 19:00 07:00 Intake Total 300 ml 1215.0 ml Balance 300 ml 1215.0 ml IV Total 100 ml 1215.0 ml Other 200 ml # Voids 3 3 Laboratory Tests 03/09/18 06:50: White Blood Count 14.2H, Red Blood Count 3.93L, Hemoglobin 10.2L, Hematocrit 31.4L, Mean Corpuscular Volume 80, Mean Corpuscular Hemoglobin 25.9L, Mean Corpuscular Hemoglobin Concent 32.3, Red Cell Distribution Width 12.0, Platelet Count 266, Mean Platelet Volume 5.8L, Neutrophils (%) (Auto) 84.4H, Lymphocytes (%) (Auto) 7.8L, Monocytes (%) (Auto) 6.8, Eosinophils (%) (Auto) 0.1, Basophils (%) (Auto) 0.8, Sodium Level 137, Potassium Level 3.1L, Chloride Level 101, Carbon Dioxide Level 27, Anion Gap 9, Blood Urea Nitrogen 5L, Creatinine 0.7, Estimat Glomerular Filtration Rate , Glucose Level 196H, Calcium Level 8.9, Iron Level 21L, Total Iron Binding Capacity 167L, Percent Iron Saturation 13L, Unsaturated Iron Binding 146, Total Bilirubin 0.6, Aspartate Amino Transf (AST/SGOT) 14L, Alanine Aminotransferase (ALT/SGPT) 9L, Alkaline Phosphatase 74, Total Protein 7.1, Albumin 2.5L, Globulin 4.6, Albumin/ Globulin Ratio 0.5L, Triglycerides Level 78, Cholesterol Level 142, LDL Cholesterol 90, HDL Cholesterol 37L, Cholesterol/HDL Ratio 3.8, Amylase Level 132H, Lipase 428H, Folate 23.0 Height (Feet): 5 Height (Inches): 6.00 Weight (Pounds): 162 General Appearance: no apparent distress EENT: PERRL/EOMI Neck: normal alignment Cardiovascular: tachycardia, irregularly irregular Respiratory/Chest: no respiratory distress Abdomen: soft Tito Choudhury MD Mar 09, 2018 14:36
--- NOTE | 2018-03-09 14:46 | Diagnostic Imaging Report ---
EXAM: CT Abdomen and Pelvis Without And With Intravenous Contrast CLINICAL HISTORY: ABD PAIN TECHNIQUE: Axial computed tomography images of the abdomen and pelvis without contrast material in one or both body regions followed by contrast material and further imaging in one or both body regions. CTDI is 17.35 mGy and DLP is 920 mGy-cm. One or more of the following dose reduction techniques were used: automated exposure control, adjustment of the mA and/or kV according to patient size, use of iterative reconstruction technique. COMPARISON: CT abdomen and pelvis dated 04/12/16 FINDINGS: Lung bases: Compressive atelectasis in bilateral dependent lung bases. Pleural space: Small bilateral pleural effusions, right greater than left. Mediastinum: Moderate size hiatal hernia. ABDOMEN: Liver: Unremarkable. No mass. Gallbladder and bile ducts: Status post cholecystectomy. No ductal dilation. Pancreas: Peripancreatic inflammatory stranding, most prominent adjacent to pancreatic tail and extending to the left anterior pararenal space, consistent with pancreatitis. 8.1 x 7.9 x 7.8 cm lobulated cystic fluid collection in the pancreatic tail region. Spleen: Unremarkable. No splenomegaly. Adrenals: Unremarkable. No mass. Kidneys and ureters: Unremarkable. No solid mass. No obstructing stones. No hydronephrosis. Subcentimeter renal cortical hypodensity in the left lower renal pole, most likely a small simple cyst. Stomach and bowel: Scattered diverticula in the descending and sigmoid colon without wall thickening or adjacent inflammatory change. Wall thickening of the gastric body and antrum, likely secondary to adjacent pancreatic inflammatory process. Focal colonic wall thickening noted at the splenic flexure and proximal descending colon, most likely secondary inflammation from the adjacent process in the pancreatic tail. Differential diagnosis and also include a small mild focal colitis or diverticulitis. No obstruction. PELVIS: Appendix: No findings to suggest acute appendicitis. Bladder: Unremarkable. No mass. No stones. Reproductive: Radiodense pessary ring identified in the vaginal fornix. Uterus and ovaries are not identified, likely surgically absent. ABDOMEN and PELVIS: Intraperitoneal space: Unremarkable. No free air. Trace fluid in the paracolic gutters. Bones/joints: Mild multilevel degenerative changes throughout the visible spine. No acute fracture. No dislocation. Soft tissues: Unremarkable. Vasculature: IVC filter in place.. No abdominal aortic aneurysm. Lymph nodes: Unremarkable. No enlarged lymph nodes. IMPRESSION: 1. Findings suggesting interstitial pancreatitis at the pancreatic tail. No visible focal pancreatic parenchymal necrosis. 2. 8.1 x 7.9 x 7.8 cm lobulated pancreatic pseudocyst at the tail. 3. Descending and sigmoid colonic diverticulosis. 4. Wall thickening of the colonic splenic flexure and proximal descending colon and wall thickening of the gastric body and antrum, likely secondary inflammation related to the adjacent pancreatic inflammatory process. 5. Small bilateral pleural effusions, right greater than left. 6. Compressive atelectasis in bilateral dependent lung bases. 7. Moderate size hiatal hernia.
[2018-03-09 16:00] VITALS: BP 153/86
[2018-03-09 20:00] VITALS: BP 151/92
[2018-03-10] VITALS: BP 138/77
[2018-03-10] MEDS: Zosyn 3.375gm q8h **Extended infusion IVPB SCH ×6 (03:33→18:16)
[2018-03-10 04:00] VITALS: BP 148/82
[2018-03-10] MEDS: NovoLOG Insulin Flexpen SUBQ SCH ×4 (06:30→20:54)
--- NOTE | 2018-03-10 07:15 | General Progress Note ---
Assessment/Plan Problem List: (1) Pancreatic pseudocyst ICD Codes: K86.3 - Pseudocyst of pancreas SNOMED: 794458792 (2) Pancreatitis ICD Codes: K85.9 - Pancreatitis SNOMED: 93440384 Qualifiers: Qualified Codes: K86.1 - Other chronic pancreatitis (3) Diabetes ICD Codes: E11.9 - Type 2 diabetes mellitus without complications SNOMED: 08884531 Qualifiers: Qualified Codes: E11.8 - Type 2 diabetes mellitus with unspecified complications (4) Gastritis ICD Codes: K29.70 - Gastritis SNOMED: 0100452 (5) Colon polyps ICD Codes: K63.5 - Colon polyps SNOMED: 23010715 (6) Duodenitis ICD Codes: K29.80 - Duodenitis without bleeding SNOMED: 09255085 (7) Anemia ICD Codes: D64.9 - Anemia SNOMED: 696917799 (8) Breast cancer ICD Codes: C50.919 - Malignant neoplasm of unspecified site of unspecified female breast SNOMED: 387096196 Assessment/Plan CT reviewed add Creon advance diet repeat labs fu lipid panel Subjective ROS Limited/Unobtainable: Yes Allergies: Coded Allergies: ACETAMINOPHEN (Verified Allergy, Unknown, 04/12/16) HYDROCODONE (Verified Allergy, Unknown, 04/12/16) Uncoded Allergies: NORCO (Allergy, Unknown, 04/12/16) Subjective abd pain better tolerated clears Objective Last 24 Hour Vital Signs Date Time Temp Pulse Resp B/P (MAP) Pulse Ox O2 Delivery O2 Flow Rate FiO2 03/10/18 04:00 98.0 87 19 148/82 (104) 96 98.0 03/10/18 00:00 97.9 87 18 138/77 (97) 95 97.9 03/09/18 21:00 Room Air 03/09/18 20:00 97.9 97 20 151/92 (111) 96 97.9 03/09/18 16:00 97.7 104 18 153/86 (108) 95 97.7 03/09/18 12:00 98.1 99 18 165/93 (117) 97 98.1 03/09/18 09:31 89 156/90 03/09/18 08:00 97.7 89 20 156/90 (112) 96 97.7 03/09/18 08:00 Room Air Intake and Output 03/09/18 03/10/18 19:00 07:00 Intake Total 590 ml 642.5 ml Balance 590 ml 642.5 ml Intake Oral 540 ml IV Total 50 ml 642.5 ml # Voids 5 3 Laboratory Tests 03/10/18 05:30: White Blood Count [Pending], Red Blood Count [Pending], Hemoglobin [Pending], Hematocrit [Pending], Mean Corpuscular Volume [Pending], Mean Corpuscular Hemoglobin [Pending], Mean Corpuscular Hemoglobin Concent [Pending], Red Cell Distribution Width [Pending], Platelet Count [Pending], Mean Platelet Volume [ Pending], Neutrophils (%) (Auto) [Pending], Lymphocytes (%) (Auto) [Pending], Monocytes (%) (Auto) [Pending], Eosinophils (%) (Auto) [Pending], Basophils (%) (Auto) [Pending], Sodium Level [Pending], Potassium Level [Pending], Chloride Level [Pending], Carbon Dioxide Level [Pending], Blood Urea Nitrogen [Pending], Creatinine [Pending], Estimat Glomerular Filtration Rate [Pending], Glucose Level [Pending], Calcium Level [Pending], Total Bilirubin [Pending], Aspartate Amino Transf (AST/SGOT) [Pending], Alanine Aminotransferase (ALT/SGPT) [Pending] , Alkaline Phosphatase [Pending], Total Protein [Pending], Albumin [Pending], Globulin [Pending], Amylase Level [Pending], Lipase [Pending] Height (Feet): 5 Height (Inches): 6.00 Weight (Pounds): 162 General Appearance: alert EENT: normal ENT inspection Neck: supple Cardiovascular: normal rate Respiratory/Chest: decreased breath sounds Abdomen: soft, hypoactive bowel sounds, tender Extremities: non-tender Rhett Agustin MD Mar 10, 2018 07:15
[2018-03-10 07:21] LABS: BASOPHILS % (AUTO) 0.6 % (0.0-2.0); EOSINOPHILS % (AUTO) 0.2 % (0.0-3.0); HEMOGLOBIN 10.4 G/DL (12.0-16.0); LYMPHOCYTES % (AUTO) 9.2 % (20.0-45.0); MEAN CORPUSCULAR VOLUME 78 FL (80-99); MONOCYTES % (AUTO) 7.8 % (1.0-10.0); NEUTROPHILS % (AUTO) 82.2 % (45.0-75.0); PLATELET COUNT 277 K/UL (150-450); RED BLOOD COUNT 3.83 M/UL (4.20-5.40); RED CELL DISTRIBUTION WIDTH 11.8 % (11.6-14.8)
[2018-03-10 07:52] LABS: ALANINE AMINOTRANSFERASE 12 U/L (12-78); ALBUMIN 2.5 G/DL (3.4-5.0); ALBUMIN/GLOBULIN RATIO 0.5 (1.0-2.7); ALKALINE PHOSPHATASE 74 U/L (46-116); ANION GAP 8 mmol/L (5-15); ASPARTATE AMINO TRANSFERASE 13 U/L (15-37); BILIRUBIN,TOTAL 0.6 MG/DL (0.2-1.0); BLOOD UREA NITROGEN 3 mg/dL (7-18); CALCIUM 9.2 MG/DL (8.5-10.1); CARBON DIOXIDE 29 MMOL/L (21-32); CHLORIDE 100 MMOL/L (98-107); CREATININE 0.7 MG/DL (0.55-1.30); POTASSIUM 3.3 MMOL/L (3.5-5.1); SODIUM 137 MMOL/L (136-145)
[2018-03-10 08:00] VITALS: BP 129/73
[2018-03-10 08:14] LABS: AMYLASE 124 U/L (25-115)
[2018-03-10] MEDS: Docusate 100mg cap ORAL SCH ×2 (09:09→17:12)
[2018-03-10] MEDS: Pancrease Cap ORAL SCH ×3 (09:09→17:12)
[2018-03-10] MEDS: Heparin 5000 units/ml inj SUBQ SCH ×2 (09:14→20:53)
--- NOTE | 2018-03-10 11:45 | Infectious Diseases Prog Note ---
Assessment/Plan Assessment/Plan A 1. pancreatitis with pseudocyst 2. leucocytosis improving 3. Metastatic breast cancer 4. diabetes mellitus P 1. continue zosyn 2. will follow up cultures Subjective ROS Limited/Unobtainable: No Constitutional: Reports: no symptoms Respiratory: Reports: no symptoms Cardiovascular: Reports: no symptoms Gastrointestinal/Abdominal: Reports: other - upper abdominal pain Genitourinary: Reports: no symptoms Musculoskeletal: Reports: no symptoms Allergies: Coded Allergies: ACETAMINOPHEN (Verified Allergy, Unknown, 04/12/16) HYDROCODONE (Verified Allergy, Unknown, 04/12/16) Uncoded Allergies: NORCO (Allergy, Unknown, 04/12/16) Objective Vital Signs Last 24 Hour Vital Signs Date Time Temp Pulse Resp B/P (MAP) Pulse Ox O2 Delivery O2 Flow Rate FiO2 03/10/18 09:15 Room Air 03/10/18 09:10 90 129/73 03/10/18 08:00 96.6 90 20 129/73 (91) 96 96.6 03/10/18 04:00 98.0 87 19 148/82 (104) 96 98.0 03/10/18 00:00 97.9 87 18 138/77 (97) 95 97.9 03/09/18 21:00 Room Air 03/09/18 20:00 97.9 97 20 151/92 (111) 96 97.9 03/09/18 16:00 97.7 104 18 153/86 (108) 95 97.7 03/09/18 12:00 98.1 99 18 165/93 (117) 97 98.1 Height (Feet): 5 Height (Inches): 6.00 Weight (Pounds): 162 General Appearance: no acute distress HEENT: mucous membranes moist Respiratory/Chest: lungs clear Cardiovascular: normal rate Abdomen: other - tender in epigastric area Extremities: no edema Neurologic/Psychiatric: alert, oriented x 3, responsive Microbiology Date/Time Source Procedure Growth Status 03/07/18 23:36 Urine,Clean Catch Urine Culture - Final Mixed Gram Positive Organism Complete Laboratory Tests Test 03/10/18 05:30 White Blood Count 14.0 K/UL (4.8-10.8) H Red Blood Count 3.83 M/UL (4.20-5.40) L Hemoglobin 10.4 G/DL (12.0-16.0) L Hematocrit 30.0 % (37.0-47.0) L Mean Corpuscular Volume 78 FL (80-99) L Mean Corpuscular Hemoglobin 27.1 PG (27.0-31.0) Mean Corpuscular Hemoglobin Concent 34.6 G/DL (32.0-36.0) Red Cell Distribution Width 11.8 % (11.6-14.8) Platelet Count 277 K/UL (150-450) Mean Platelet Volume 5.8 FL (6.5-10.1) L Neutrophils (%) (Auto) 82.2 % (45.0-75.0) H Lymphocytes (%) (Auto) 9.2 % (20.0-45.0) L Monocytes (%) (Auto) 7.8 % (1.0-10.0) Eosinophils (%) (Auto) 0.2 % (0.0-3.0) Basophils (%) (Auto) 0.6 % (0.0-2.0) Sodium Level 137 MMOL/L (136-145) Potassium Level 3.3 MMOL/L (3.5-5.1) L Chloride Level 100 MMOL/L (98-107) Carbon Dioxide Level 29 MMOL/L (21-32) Anion Gap 8 mmol/L (5-15) Blood Urea Nitrogen 3 mg/dL (7-18) L Creatinine 0.7 MG/DL (0.55-1.30) Estimat Glomerular Filtration Rate mL/min (>60) Glucose Level 151 MG/DL (74-106) H Calcium Level 9.2 MG/DL (8.5-10.1) Total Bilirubin 0.6 MG/DL (0.2-1.0) Aspartate Amino Transf (AST/SGOT) 13 U/L (15-37) L Alanine Aminotransferase (ALT/SGPT) 12 U/L (12-78) Alkaline Phosphatase 74 U/L (46-116) Total Protein 7.1 G/DL (6.4-8.2) Albumin 2.5 G/DL (3.4-5.0) L Globulin 4.6 g/dL Albumin/Globulin Ratio 0.5 (1.0-2.7) L Amylase Level 124 U/L (25-115) H Lipase 408 U/L (73-393) H Current Medications Medications (Trade) Dose Ordered Sig/Rehan Route PRN Reason Start Time Stop Time Status Last Admin Dose Admin Amlodipine Besylate (Norvasc) 10 mg DAILY ORAL 03/09/18 09:00 04/07/18 08:59 03/10/18 09:10 Amylase/Lipase/ Protease (Pancrease) 2 ea THREE TIMES A DAY ORAL 03/10/18 09:00 04/09/18 08:59 03/10/18 09:09 Barium Sulfate (Readi-Cat 2) 450 ml NOW PRN ORAL Radiology Procedure 03/09/18 08:15 03/11/18 08:05 Dextrose (Dextrose 50%) 25 ml STAT PRN IV Hypoglycemia 03/08/18 01:00 04/07/18 00:59 Dextrose (Dextrose 50%) 50 ml STAT PRN IV Hypoglycemia 03/08/18 01:00 04/07/18 00:59 Dextrose/ Electrolytes 1,000 ml @ 50 mls/hr Q20H IV 03/09/18 08:30 04/08/18 08:29 03/09/18 09:30 Diphenhydramine HCl (Benadryl) 25 mg Q6H PRN ORAL Itching 03/08/18 01:00 04/07/18 00:59 Docusate Sodium (Colace) 100 mg TWICE A DAY ORAL 03/08/18 09:00 04/07/18 08:59 03/10/18 09:09 Heparin Sodium (Porcine) (Heparin 5000 units/ml) 5,000 units EVERY 12 HOURS SUBQ 03/08/18 09:00 04/07/18 08:59 03/10/18 09:14 Hydrochlorothiazide (Hydrodiuril) 25 mg DAILY ORAL 03/09/18 09:00 04/08/18 08:59 03/10/18 09:10 Ibuprofen (Motrin) 600 mg Q4H PRN ORAL Mild Pain (Pain Scale 1-3) 03/08/18 01:00 04/07/18 00:59 Insulin Aspart (NovoLOG) BEFORE MEALS AND HS SUBQ 03/08/18 06:30 04/07/18 06:29 03/10/18 06:30 Iopamidol (Isovue-300 100ml) 100 ml NOW PRN INJ Radiology Procedure 03/09/18 08:15 03/11/18 08:14 Metoclopramide HCl (Reglan) 10 mg Q4H PRN IVP Nausea & Vomiting 03/08/18 03:03 04/07/18 03:02 Ondansetron HCl (Zofran) 4 mg Q4H PRN IVP Nausea & Vomiting 03/08/18 03:03 04/07/18 03:02 03/09/18 10:25 Pantoprazole (Protonix) 40 mg DAILY ORAL 03/08/18 09:00 04/07/18 08:59 03/10/18 09:10 Piperacillin Sod/ Tazobactam Sod 3.375 gm/Sodium Chloride 110 ml @ 27.5 mls/hr Q8H IVPB 03/08/18 03:00 03/15/18 02:59 03/10/18 10:49 Tramadol HCl (Ultram) 50 mg Q6H PRN ORAL Severe Pain (Pain Scale 7-10) 03/08/18 01:30 03/15/18 01:29 03/09/18 20:35 Clayton Brady MD Mar 10, 2018 11:45
[2018-03-10 12:00] VITALS: BP 127/70
--- NOTE | 2018-03-10 12:07 | Pulmonology Progress Note ---
Assessment/Plan Assessment/Plan ASSESSMENT: The patient is a 72-year-old female with a history of diabetes, breast cancer, status post mastectomy on chemotherapy, prior pancreatitis, status post cholecystectomy, now presenting with nausea and vomiting secondary to recurrent pancreatitis and urinary tract infection. PROBLEM LIST: 1. Acute on chronic pancreatitis. 2. History of pancreatic pseudocyst. 3. History of gallstone pancreatitis, status post cholecystectomy. 4. Urinary tract infection. 5. Breast cancer, status post mastectomy, currently on chemotherapy. 6. Hypertension. 7. Diabetes. 8. Hypokalemia. TREATMENT PLAN: 1. Advance diet per GI 2. IVF 3. Replete K 4. Creon started 5. Continue Zosyn per ID 6. Follow up cultures. 7. Continue Norvasc 10, HCTZ 25 8. F/U heme-onc recs 9. Sliding scale insulin. 10. Monitor volumes. 11. DVT prophylaxis, heparin subcutaneous. 12. PPI. Subjective Allergies: Coded Allergies: ACETAMINOPHEN (Verified Allergy, Unknown, 04/12/16) HYDROCODONE (Verified Allergy, Unknown, 04/12/16) Uncoded Allergies: NORCO (Allergy, Unknown, 04/12/16) Subjective AFVSS , CT reviewed No F/C/N/V/D/C/abd pain/urinary complaints Objective Last 24 Hour Vital Signs Date Time Temp Pulse Resp B/P (MAP) Pulse Ox O2 Delivery O2 Flow Rate FiO2 03/10/18 09:15 Room Air 03/10/18 09:10 90 129/73 03/10/18 08:00 96.6 90 20 129/73 (91) 96 96.6 03/10/18 04:00 98.0 87 19 148/82 (104) 96 98.0 03/10/18 00:00 97.9 87 18 138/77 (97) 95 97.9 03/09/18 21:00 Room Air 03/09/18 20:00 97.9 97 20 151/92 (111) 96 97.9 03/09/18 16:00 97.7 104 18 153/86 (108) 95 97.7 Intake and Output 03/09/18 03/10/18 19:00 07:00 Intake Total 590 ml 642.5 ml Balance 590 ml 642.5 ml Intake Oral 540 ml IV Total 50 ml 642.5 ml # Voids 5 3 General Appearance: WD/WN, no acute distress HEENT: normocephalic, atraumatic, anicteric, mucous membranes moist Respiratory/Chest: chest wall non-tender, lungs clear, normal breath sounds, no respiratory distress, no accessory muscle use Cardiovascular: normal peripheral pulses, normal rate, regular rhythm Abdomen: normal bowel sounds, soft, non tender, no organomegaly, non distended Extremities: no cyanosis, no clubbing, no edema Microbiology Date/Time Source Procedure Growth Status 03/07/18 23:36 Urine,Clean Catch Urine Culture - Final Mixed Gram Positive Organism Complete Laboratory Tests 03/10/18 05:30: White Blood Count 14.0H, Red Blood Count 3.83L, Hemoglobin 10.4L, Hematocrit 30.0L, Mean Corpuscular Volume 78L, Mean Corpuscular Hemoglobin 27.1, Mean Corpuscular Hemoglobin Concent 34.6, Red Cell Distribution Width 11.8, Platelet Count 277, Mean Platelet Volume 5.8L, Neutrophils (%) (Auto) 82.2H, Lymphocytes (%) (Auto) 9.2L, Monocytes (%) (Auto) 7.8, Eosinophils (%) (Auto) 0.2, Basophils (%) (Auto) 0.6, Sodium Level 137, Potassium Level 3.3L, Chloride Level 100, Carbon Dioxide Level 29, Anion Gap 8, Blood Urea Nitrogen 3L, Creatinine 0.7, Estimat Glomerular Filtration Rate , Glucose Level 151H, Calcium Level 9.2, Total Bilirubin 0.6, Aspartate Amino Transf (AST/SGOT) 13L, Alanine Aminotransferase (ALT/SGPT) 12, Alkaline Phosphatase 74, Total Protein 7.1, Albumin 2.5L, Globulin 4.6, Albumin/Globulin Ratio 0.5L, Amylase Level 124H , Lipase 408H Current Medications Medications (Trade) Dose Ordered Sig/Rehan Route PRN Reason Start Time Stop Time Status Last Admin Dose Admin Amlodipine Besylate (Norvasc) 10 mg DAILY ORAL 03/09/18 09:00 04/07/18 08:59 03/10/18 09:10 Amylase/Lipase/ Protease (Pancrease) 2 ea THREE TIMES A DAY ORAL 03/10/18 09:00 04/09/18 08:59 03/10/18 09:09 Barium Sulfate (Readi-Cat 2) 450 ml NOW PRN ORAL Radiology Procedure 03/09/18 08:15 03/11/18 08:05 Dextrose (Dextrose 50%) 25 ml STAT PRN IV Hypoglycemia 03/08/18 01:00 04/07/18 00:59 Dextrose (Dextrose 50%) 50 ml STAT PRN IV Hypoglycemia 03/08/18 01:00 04/07/18 00:59 Dextrose/ Electrolytes 1,000 ml @ 50 mls/hr Q20H IV 03/09/18 08:30 04/08/18 08:29 03/09/18 09:30 Diphenhydramine HCl (Benadryl) 25 mg Q6H PRN ORAL Itching 03/08/18 01:00 04/07/18 00:59 Docusate Sodium (Colace) 100 mg TWICE A DAY ORAL 03/08/18 09:00 04/07/18 08:59 03/10/18 09:09 Heparin Sodium (Porcine) (Heparin 5000 units/ml) 5,000 units EVERY 12 HOURS SUBQ 03/08/18 09:00 04/07/18 08:59 03/10/18 09:14 Hydrochlorothiazide (Hydrodiuril) 25 mg DAILY ORAL 03/09/18 09:00 04/08/18 08:59 03/10/18 09:10 Ibuprofen (Motrin) 600 mg Q4H PRN ORAL Mild Pain (Pain Scale 1-3) 03/08/18 01:00 04/07/18 00:59 Insulin Aspart (NovoLOG) BEFORE MEALS AND HS SUBQ 03/08/18 06:30 04/07/18 06:29 03/10/18 06:30 Iopamidol (Isovue-300 100ml) 100 ml NOW PRN INJ Radiology Procedure 03/09/18 08:15 03/11/18 08:14 Metoclopramide HCl (Reglan) 10 mg Q4H PRN IVP Nausea & Vomiting 03/08/18 03:03 04/07/18 03:02 Ondansetron HCl (Zofran) 4 mg Q4H PRN IVP Nausea & Vomiting 03/08/18 03:03 04/07/18 03:02 03/09/18 10:25 Pantoprazole (Protonix) 40 mg DAILY ORAL 03/08/18 09:00 04/07/18 08:59 03/10/18 09:10 Piperacillin Sod/ Tazobactam Sod 3.375 gm/Sodium Chloride 110 ml @ 27.5 mls/hr Q8H IVPB 03/08/18 03:00 03/15/18 02:59 03/10/18 10:49 Tramadol HCl (Ultram) 50 mg Q6H PRN ORAL Severe Pain (Pain Scale 7-10) 03/08/18 01:30 03/15/18 01:29 03/09/18 20:35 Esteban Gu MD Mar 10, 2018 12:07
[2018-03-10] MEDS ORDERED: Simethicone 80mg tab ORAL PRN (13:00)
[2018-03-10 16:00] VITALS: BP 135/75
[2018-03-10 20:00] VITALS: BP 128/70
[2018-03-10] MEDS ORDERED: Zolpidem 5mg tab ORAL PRN (21:23)
[2018-03-11] VITALS: BP 148/84
[2018-03-11] MEDS: Zosyn 3.375gm q8h **Extended infusion IVPB SCH ×6 (02:43→19:00)
[2018-03-11 04:00] VITALS: BP 131/80
[2018-03-11] MEDS: NovoLOG Insulin Flexpen SUBQ SCH ×4 (06:19→21:06)
[2018-03-11 08:06] VITALS: BP 124/64
[2018-03-11] MEDS: Pancrease Cap ORAL SCH ×3 (08:32→16:55)
[2018-03-11] MEDS: Docusate 100mg cap ORAL SCH ×2 (08:32→16:55)
[2018-03-11] MEDS: Heparin 5000 units/ml inj SUBQ SCH ×2 (08:39→21:10)
[2018-03-11 08:40] LABS: BASOPHILS % (AUTO) 0.4 % (0.0-2.0); EOSINOPHILS % (AUTO) 0.2 % (0.0-3.0); HEMATOCRIT 33.2 % (37.0-47.0); HEMOGLOBIN 11.1 G/DL (12.0-16.0); LYMPHOCYTES % (AUTO) 10.8 % (20.0-45.0); MEAN CORPUSCULAR VOLUME 79 FL (80-99); NEUTROPHILS % (AUTO) 81.6 % (45.0-75.0); PLATELET COUNT 372 K/UL (150-450); RED BLOOD COUNT 4.19 M/UL (4.20-5.40); RED CELL DISTRIBUTION WIDTH 12.5 % (11.6-14.8); WHITE BLOOD COUNT 15.8 K/UL (4.8-10.8)
[2018-03-11 08:52] LABS: ALANINE AMINOTRANSFERASE 9 U/L (12-78); ALBUMIN 2.6 G/DL (3.4-5.0); ALBUMIN/GLOBULIN RATIO 0.5 (1.0-2.7); ALKALINE PHOSPHATASE 73 U/L (46-116); ANION GAP 11 mmol/L (5-15); ASPARTATE AMINO TRANSFERASE 12 U/L (15-37); BILIRUBIN,TOTAL 0.5 MG/DL (0.2-1.0); BLOOD UREA NITROGEN 5 mg/dL (7-18); CALCIUM 9.7 MG/DL (8.5-10.1); CARBON DIOXIDE 28 MMOL/L (21-32); CHLORIDE 101 MMOL/L (98-107); CHOLESTEROL 160 MG/DL (< 200); CREATININE 1.1 MG/DL (0.55-1.30); HDL CHOLESTEROL 34 MG/DL (40-60); POTASSIUM 3.1 MMOL/L (3.5-5.1); SODIUM 140 MMOL/L (136-145); TRIGLYCERIDES 88 MG/DL (30-150)
[2018-03-11 09:02] LABS: AMYLASE 125 U/L (25-115)
--- NOTE | 2018-03-11 10:11 | Pulmonology Progress Note ---
Assessment/Plan Assessment/Plan PROBLEM LIST: 1. Acute on chronic pancreatitis. 2. History of pancreatic pseudocyst. 3. History of gallstone pancreatitis, status post cholecystectomy. 4. Urinary tract infection. 5. Breast cancer, status post mastectomy, currently on chemotherapy. 6. Hypertension. 7. Diabetes. 8. Hypokalemia. TREATMENT PLAN: 1. Advance diet 2. IVF 3. Replete K 4. Creon started 5. Continue Zosyn per ID 6. Follow up cultures. 7. Continue Norvasc 10, HCTZ 25 8. F/U heme-onc recs 9. Sliding scale insulin. 10. Monitor volumes. 11. DVT prophylaxis, heparin subcutaneous. 12. PPI. Subjective Interval Events: Better; nausea decreased Constitutional: Reports: no symptoms HEENT: Repors: no symptoms Respiratory: Reports: no symptoms Cardiovascular: Reports: no symptoms Gastrointestinal/Abdominal: Reports: no symptoms Genitourinary: Reports: no symptoms Allergies: Coded Allergies: ACETAMINOPHEN (Verified Allergy, Unknown, 04/12/16) HYDROCODONE (Verified Allergy, Unknown, 04/12/16) Uncoded Allergies: NORCO (Allergy, Unknown, 04/12/16) Objective Last 24 Hour Vital Signs Date Time Temp Pulse Resp B/P (MAP) Pulse Ox O2 Delivery O2 Flow Rate FiO2 03/11/18 09:00 Room Air 03/11/18 08:32 90 124/64 03/11/18 08:06 97.0 90 18 124/64 (84) 95 97.0 03/11/18 04:00 98.9 93 19 131/80 (97) 95 98.9 03/11/18 00:00 99.3 98 18 148/84 (105) 92 99.3 03/10/18 21:00 Room Air 03/10/18 20:00 98.5 105 18 128/70 (89) 100 98.5 03/10/18 16:00 97.6 101 23 135/75 (95) 98 97.6 03/10/18 12:00 97.0 88 18 127/70 (89) 97 97.0 Intake and Output 03/10/18 03/11/18 19:00 07:00 Intake Total 1215.0 ml 182.5 ml Balance 1215.0 ml 182.5 ml Intake Oral 600 ml IV Total 615.0 ml 182.5 ml # Voids 3 4 General Appearance: no acute distress HEENT: normocephalic Respiratory/Chest: chest wall non-tender, lungs clear Cardiovascular: normal peripheral pulses, normal rate Abdomen: normal bowel sounds, soft, non tender Laboratory Tests 03/11/18 07:40: White Blood Count 15.8H, Red Blood Count 4.19L, Hemoglobin 11.1L, Hematocrit 33.2L, Mean Corpuscular Volume 79L, Mean Corpuscular Hemoglobin 26.6L, Mean Corpuscular Hemoglobin Concent 33.6, Red Cell Distribution Width 12.5, Platelet Count 372, Mean Platelet Volume 5.5L, Neutrophils (%) (Auto) 81.6H, Lymphocytes (%) (Auto) 10.8L, Monocytes (%) (Auto) 7.0, Eosinophils (%) (Auto) 0.2, Basophils (%) (Auto) 0.4, Sodium Level 140, Potassium Level 3.1L, Chloride Level 101, Carbon Dioxide Level 28, Anion Gap 11, Blood Urea Nitrogen 5L, Creatinine 1.1#, Estimat Glomerular Filtration Rate , Glucose Level 188H, Calcium Level 9.7, Total Bilirubin 0.5, Aspartate Amino Transf (AST/SGOT) 12L, Alanine Aminotransferase (ALT/SGPT) 9L, Alkaline Phosphatase 73, Total Protein 7.6, Albumin 2.6L, Globulin 5.0, Albumin/Globulin Ratio 0.5L, Triglycerides Level 88, Cholesterol Level 160, LDL Cholesterol 103H, HDL Cholesterol 34L, Cholesterol/HDL Ratio 4.7H, Amylase Level 125H, Lipase 465H Current Medications Medications (Trade) Dose Ordered Sig/Rehan Route PRN Reason Start Time Stop Time Status Last Admin Dose Admin Al Hydroxide/Mg Hydroxide (Mylanta) 30 ml Q6H PRN ORAL Abdominal cramps 03/10/18 13:08 04/09/18 13:07 Amlodipine Besylate (Norvasc) 10 mg DAILY ORAL 03/09/18 09:00 04/07/18 08:59 03/11/18 08:32 Amylase/Lipase/ Protease (Pancrease) 2 ea THREE TIMES A DAY ORAL 03/10/18 09:00 04/09/18 08:59 03/11/18 08:32 Dextrose (Dextrose 50%) 25 ml STAT PRN IV Hypoglycemia 03/08/18 01:00 04/07/18 00:59 Dextrose (Dextrose 50%) 50 ml STAT PRN IV Hypoglycemia 03/08/18 01:00 04/07/18 00:59 Dextrose/ Electrolytes 1,000 ml @ 50 mls/hr Q20H IV 03/09/18 08:30 04/08/18 08:29 03/10/18 20:49 Diphenhydramine HCl (Benadryl) 25 mg Q6H PRN ORAL Itching 03/08/18 01:00 04/07/18 00:59 Docusate Sodium (Colace) 100 mg TWICE A DAY ORAL 03/08/18 09:00 04/07/18 08:59 03/11/18 08:32 Heparin Sodium (Porcine) (Heparin 5000 units/ml) 5,000 units EVERY 12 HOURS SUBQ 03/08/18 09:00 04/07/18 08:59 03/11/18 08:39 Hydrochlorothiazide (Hydrodiuril) 25 mg DAILY ORAL 03/09/18 09:00 04/08/18 08:59 03/11/18 08:32 Ibuprofen (Motrin) 600 mg Q4H PRN ORAL Mild Pain (Pain Scale 1-3) 03/08/18 01:00 04/07/18 00:59 Insulin Aspart (NovoLOG) BEFORE MEALS AND HS SUBQ 03/08/18 06:30 04/07/18 06:29 03/11/18 06:19 Metoclopramide HCl (Reglan) 10 mg Q4H PRN IVP Nausea & Vomiting 03/08/18 03:03 04/07/18 03:02 03/10/18 17:25 Ondansetron HCl (Zofran) 4 mg Q4H PRN IVP Nausea & Vomiting 03/08/18 03:03 04/07/18 03:02 03/10/18 14:51 Pantoprazole (Protonix) 40 mg DAILY ORAL 03/08/18 09:00 04/07/18 08:59 03/11/18 08:32 Piperacillin Sod/ Tazobactam Sod 3.375 gm/Sodium Chloride 110 ml @ 27.5 mls/hr Q8H IVPB 03/08/18 03:00 03/15/18 02:59 03/11/18 02:43 Simethicone (Mylicon) 80 mg QIDPRN PRN ORAL Abdominal cramps 03/10/18 13:00 04/09/18 12:59 Tramadol HCl (Ultram) 50 mg Q6H PRN ORAL Severe Pain (Pain Scale 7-10) 03/08/18 01:30 03/15/18 01:29 03/09/18 20:35 Zolpidem Tartrate (Ambien) 5 mg HSPRN PRN ORAL Insomnia 03/10/18 21:23 03/17/18 21:22 Bernard Hernandez MD Mar 11, 2018 10:11
--- NOTE | 2018-03-11 11:10 | Infectious Diseases Prog Note ---
Assessment/Plan Assessment/Plan A 1. pancreatitis with pseudocyst 2. leucocytosis 3. Metastatic breast cancer 4. diabetes mellitus P 1. continue Zosyn 2. will follow up cultures Subjective ROS Limited/Unobtainable: No Constitutional: Reports: no symptoms Respiratory: Reports: no symptoms Cardiovascular: Reports: no symptoms Gastrointestinal/Abdominal: Reports: nausea, other - epigastric crampy pain Genitourinary: Reports: no symptoms Allergies: Coded Allergies: ACETAMINOPHEN (Verified Allergy, Unknown, 04/12/16) HYDROCODONE (Verified Allergy, Unknown, 04/12/16) Uncoded Allergies: NORCO (Allergy, Unknown, 04/12/16) Objective Vital Signs Last 24 Hour Vital Signs Date Time Temp Pulse Resp B/P (MAP) Pulse Ox O2 Delivery O2 Flow Rate FiO2 03/11/18 09:00 Room Air 03/11/18 08:32 90 124/64 03/11/18 08:06 97.0 90 18 124/64 (84) 95 97.0 03/11/18 04:00 98.9 93 19 131/80 (97) 95 98.9 03/11/18 00:00 99.3 98 18 148/84 (105) 92 99.3 03/10/18 21:00 Room Air 03/10/18 20:00 98.5 105 18 128/70 (89) 100 98.5 03/10/18 16:00 97.6 101 23 135/75 (95) 98 97.6 03/10/18 12:00 97.0 88 18 127/70 (89) 97 97.0 Height (Feet): 5 Height (Inches): 6.00 Weight (Pounds): 162 General Appearance: no acute distress HEENT: other - hair loss Respiratory/Chest: lungs clear Cardiovascular: normal rate Abdomen: other - mildly tender on epigastric area Extremities: no edema Neurologic/Psychiatric: alert, oriented x 3, responsive Laboratory Tests Test 03/11/18 07:40 White Blood Count 15.8 K/UL (4.8-10.8) H Red Blood Count 4.19 M/UL (4.20-5.40) L Hemoglobin 11.1 G/DL (12.0-16.0) L Hematocrit 33.2 % (37.0-47.0) L Mean Corpuscular Volume 79 FL (80-99) L Mean Corpuscular Hemoglobin 26.6 PG (27.0-31.0) L Mean Corpuscular Hemoglobin Concent 33.6 G/DL (32.0-36.0) Red Cell Distribution Width 12.5 % (11.6-14.8) Platelet Count 372 K/UL (150-450) Mean Platelet Volume 5.5 FL (6.5-10.1) L Neutrophils (%) (Auto) 81.6 % (45.0-75.0) H Lymphocytes (%) (Auto) 10.8 % (20.0-45.0) L Monocytes (%) (Auto) 7.0 % (1.0-10.0) Eosinophils (%) (Auto) 0.2 % (0.0-3.0) Basophils (%) (Auto) 0.4 % (0.0-2.0) Sodium Level 140 MMOL/L (136-145) Potassium Level 3.1 MMOL/L (3.5-5.1) L Chloride Level 101 MMOL/L (98-107) Carbon Dioxide Level 28 MMOL/L (21-32) Anion Gap 11 mmol/L (5-15) Blood Urea Nitrogen 5 mg/dL (7-18) L Creatinine 1.1 MG/DL (0.55-1.30) # Estimat Glomerular Filtration Rate mL/min (>60) Glucose Level 188 MG/DL (74-106) H Calcium Level 9.7 MG/DL (8.5-10.1) Total Bilirubin 0.5 MG/DL (0.2-1.0) Aspartate Amino Transf (AST/SGOT) 12 U/L (15-37) L Alanine Aminotransferase (ALT/SGPT) 9 U/L (12-78) L Alkaline Phosphatase 73 U/L (46-116) Total Protein 7.6 G/DL (6.4-8.2) Albumin 2.6 G/DL (3.4-5.0) L Globulin 5.0 g/dL Albumin/Globulin Ratio 0.5 (1.0-2.7) L Triglycerides Level 88 MG/DL (30-150) Cholesterol Level 160 MG/DL (< 200) LDL Cholesterol 103 mg/dL (<100) H HDL Cholesterol 34 MG/DL (40-60) L Cholesterol/HDL Ratio 4.7 (3.3-4.4) H Amylase Level 125 U/L (25-115) H Lipase 465 U/L (73-393) H Current Medications Medications (Trade) Dose Ordered Sig/Rehan Route PRN Reason Start Time Stop Time Status Last Admin Dose Admin Al Hydroxide/Mg Hydroxide (Mylanta) 30 ml Q6H PRN ORAL Abdominal cramps 03/10/18 13:08 04/09/18 13:07 Amlodipine Besylate (Norvasc) 10 mg DAILY ORAL 03/09/18 09:00 04/07/18 08:59 03/11/18 08:32 Amylase/Lipase/ Protease (Pancrease) 2 ea THREE TIMES A DAY ORAL 03/10/18 09:00 04/09/18 08:59 03/11/18 08:32 Dextrose (Dextrose 50%) 25 ml STAT PRN IV Hypoglycemia 03/08/18 01:00 04/07/18 00:59 Dextrose (Dextrose 50%) 50 ml STAT PRN IV Hypoglycemia 03/08/18 01:00 04/07/18 00:59 Dextrose/ Electrolytes 1,000 ml @ 50 mls/hr Q20H IV 03/09/18 08:30 04/08/18 08:29 03/10/18 20:49 Diphenhydramine HCl (Benadryl) 25 mg Q6H PRN ORAL Itching 03/08/18 01:00 04/07/18 00:59 Docusate Sodium (Colace) 100 mg TWICE A DAY ORAL 03/08/18 09:00 04/07/18 08:59 03/11/18 08:32 Heparin Sodium (Porcine) (Heparin 5000 units/ml) 5,000 units EVERY 12 HOURS SUBQ 03/08/18 09:00 04/07/18 08:59 03/11/18 08:39 Hydrochlorothiazide (Hydrodiuril) 25 mg DAILY ORAL 03/09/18 09:00 04/08/18 08:59 03/11/18 08:32 Ibuprofen (Motrin) 600 mg Q4H PRN ORAL Mild Pain (Pain Scale 1-3) 03/08/18 01:00 04/07/18 00:59 Insulin Aspart (NovoLOG) BEFORE MEALS AND HS SUBQ 03/08/18 06:30 04/07/18 06:29 03/11/18 06:19 Metoclopramide HCl (Reglan) 10 mg Q4H PRN IVP Nausea & Vomiting 03/08/18 03:03 04/07/18 03:02 03/10/18 17:25 Ondansetron HCl (Zofran) 4 mg Q4H PRN IVP Nausea & Vomiting 03/08/18 03:03 04/07/18 03:02 03/10/18 14:51 Pantoprazole (Protonix) 40 mg DAILY ORAL 03/08/18 09:00 04/07/18 08:59 03/11/18 08:32 Piperacillin Sod/ Tazobactam Sod 3.375 gm/Sodium Chloride 110 ml @ 27.5 mls/hr Q8H IVPB 03/08/18 03:00 03/15/18 02:59 03/11/18 02:43 Simethicone (Mylicon) 80 mg QIDPRN PRN ORAL Abdominal cramps 03/10/18 13:00 04/09/18 12:59 Tramadol HCl (Ultram) 50 mg Q6H PRN ORAL Severe Pain (Pain Scale 7-10) 03/08/18 01:30 03/15/18 01:29 03/09/18 20:35 Zolpidem Tartrate (Ambien) 5 mg HSPRN PRN ORAL Insomnia 03/10/18 21:23 03/17/18 21:22 Clayton Brady MD Mar 11, 2018 11:10
[2018-03-11 12:19] VITALS: BP 142/78
--- NOTE | 2018-03-11 14:27 | GI Progress Note ---
Assessment/Plan Problems: (1) Gastritis ICD Codes: K29.70 - Gastritis SNOMED: 5297433 (2) Anemia ICD Codes: D64.9 - Anemia SNOMED: 919912138 (3) Dehydration ICD Codes: E86.0 - Dehydration SNOMED: 00120615 (4) Intractable vomiting ICD Codes: R11.10 - Vomiting, unspecified SNOMED: 238459968 Qualifiers: Qualified Codes: R11.2 - Nausea with vomiting, unspecified (5) Pancreatitis ICD Codes: K85.9 - Pancreatitis SNOMED: 36364506 Qualifiers: Qualified Codes: K86.1 - Other chronic pancreatitis (6) Persistent vomiting ICD Codes: R11.10 - Vomiting, unspecified SNOMED: 181287292 (7) Abdominal pain ICD Codes: R10.9 - Unspecified abdominal pain SNOMED: 84549772 Status: stable, unchanged Status Narrative Discussed with Dr. Agustin. Assessment/Plan CT reviewed lipid panel reviewed breast CA defer any GI procedures, symptomatic treatment add Creon reglan prn advance diet as tolerated repeat labs Subjective Gastrointestinal/Abdominal: Reports: no symptoms Objective Last 24 Hour Vital Signs Date Time Temp Pulse Resp B/P (MAP) Pulse Ox O2 Delivery O2 Flow Rate FiO2 03/11/18 12:19 97.5 87 18 142/78 (99) 99 97.5 03/11/18 09:00 Room Air 03/11/18 08:32 90 124/64 03/11/18 08:06 97.0 90 18 124/64 (84) 95 97.0 03/11/18 04:00 98.9 93 19 131/80 (97) 95 98.9 03/11/18 00:00 99.3 98 18 148/84 (105) 92 99.3 03/10/18 21:00 Room Air 03/10/18 20:00 98.5 105 18 128/70 (89) 100 98.5 03/10/18 16:00 97.6 101 23 135/75 (95) 98 97.6 Intake and Output 03/10/18 03/11/18 18:59 06:59 Intake Total 1187.5 ml 210.0 ml Balance 1187.5 ml 210.0 ml Intake Oral 600 ml IV Total 587.5 ml 210.0 ml # Voids 3 4 Laboratory Tests Test 03/11/18 07:40 03/11/18 08:30 White Blood Count 15.8 K/UL (4.8-10.8) H Red Blood Count 4.19 M/UL (4.20-5.40) L Hemoglobin 11.1 G/DL (12.0-16.0) L Hematocrit 33.2 % (37.0-47.0) L Mean Corpuscular Volume 79 FL (80-99) L Mean Corpuscular Hemoglobin 26.6 PG (27.0-31.0) L Mean Corpuscular Hemoglobin Concent 33.6 G/DL (32.0-36.0) Red Cell Distribution Width 12.5 % (11.6-14.8) Platelet Count 372 K/UL (150-450) Mean Platelet Volume 5.5 FL (6.5-10.1) L Neutrophils (%) (Auto) 81.6 % (45.0-75.0) H Lymphocytes (%) (Auto) 10.8 % (20.0-45.0) L Monocytes (%) (Auto) 7.0 % (1.0-10.0) Eosinophils (%) (Auto) 0.2 % (0.0-3.0) Basophils (%) (Auto) 0.4 % (0.0-2.0) Sodium Level 140 MMOL/L (136-145) Potassium Level 3.1 MMOL/L (3.5-5.1) L Chloride Level 101 MMOL/L (98-107) Carbon Dioxide Level 28 MMOL/L (21-32) Anion Gap 11 mmol/L (5-15) Blood Urea Nitrogen 5 mg/dL (7-18) L Creatinine 1.1 MG/DL (0.55-1.30) # Estimat Glomerular Filtration Rate mL/min (>60) Glucose Level 188 MG/DL (74-106) H Calcium Level 9.7 MG/DL (8.5-10.1) Total Bilirubin 0.5 MG/DL (0.2-1.0) Aspartate Amino Transf (AST/SGOT) 12 U/L (15-37) L Alanine Aminotransferase (ALT/SGPT) 9 U/L (12-78) L Alkaline Phosphatase 73 U/L (46-116) Total Protein 7.6 G/DL (6.4-8.2) Albumin 2.6 G/DL (3.4-5.0) L Globulin 5.0 g/dL Albumin/Globulin Ratio 0.5 (1.0-2.7) L Triglycerides Level 88 MG/DL (30-150) Cholesterol Level 160 MG/DL (< 200) LDL Cholesterol 103 mg/dL (<100) H HDL Cholesterol 34 MG/DL (40-60) L Cholesterol/HDL Ratio 4.7 (3.3-4.4) H Amylase Level 125 U/L (25-115) H Lipase 465 U/L (73-393) H Stool Occult Blood Negative (NEGATIVE) Height (Feet): 5 Height (Inches): 6.00 Weight (Pounds): 162 General Appearance: alert Cardiovascular: normal rate Respiratory/Chest: normal breath sounds, no respiratory distress Abdominal Exam: non tender, soft Extremities: normal range of motion Janet Polanco NP Mar 11, 2018 14:27
[2018-03-11 15:24] VITALS: BP 140/71
[2018-03-11] MEDS: traMADol 50mg tab ORAL PRN ×2 (16:55→23:22)
[2018-03-11 20:00] VITALS: BP 104/68
[2018-03-12] VITALS: BP 116/72
[2018-03-12] MEDS: Zosyn 3.375gm q8h **Extended infusion IVPB SCH ×2 (02:54)
[2018-03-12 04:00] VITALS: BP 111/67
[2018-03-12 06:31] LABS: BASOPHILS % (AUTO) 0.6 % (0.0-2.0); EOSINOPHILS % (AUTO) 0.5 % (0.0-3.0); HEMATOCRIT 29.4 % (37.0-47.0); HEMOGLOBIN 9.6 G/DL (12.0-16.0); LYMPHOCYTES % (AUTO) 13.4 % (20.0-45.0); MEAN CORPUSCULAR VOLUME 80 FL (80-99); MONOCYTES % (AUTO) 8.2 % (1.0-10.0); NEUTROPHILS % (AUTO) 77.3 % (45.0-75.0); PLATELET COUNT 296 K/UL (150-450); RED BLOOD COUNT 3.69 M/UL (4.20-5.40); RED CELL DISTRIBUTION WIDTH 12.7 % (11.6-14.8); WHITE BLOOD COUNT 11.3 K/UL (4.8-10.8)
[2018-03-12] MEDS: NovoLOG Insulin Flexpen SUBQ SCH ×2 (06:35→12:16)
[2018-03-12 06:45] LABS: ANION GAP 7 mmol/L (5-15); BLOOD UREA NITROGEN 7 mg/dL (7-18); CARBON DIOXIDE 29 MMOL/L (21-32); CHLORIDE 104 MMOL/L (98-107); CREATININE 0.9 MG/DL (0.55-1.30); POTASSIUM 3.2 MMOL/L (3.5-5.1); SODIUM 140 MMOL/L (136-145)
[2018-03-12 08:00] VITALS: BP 114/64
[2018-03-12] MEDS: Docusate 100mg cap ORAL SCH (08:39)
[2018-03-12] MEDS: Pancrease Cap ORAL SCH ×2 (08:40→12:17)
[2018-03-12] MEDS: Heparin 5000 units/ml inj SUBQ SCH (08:42)
--- NOTE | 2018-03-12 09:18 | Pulmonology Progress Note ---
Assessment/Plan Assessment/Plan PROBLEM LIST: 1. Acute on chronic pancreatitis. 2. History of pancreatic pseudocyst. 3. History of gallstone pancreatitis, status post cholecystectomy. 4. Urinary tract infection. 5. Breast cancer, status post mastectomy, currently on chemotherapy. 6. Hypertension. 7. Diabetes. 8. Hypokalemia. TREATMENT PLAN: 1. Advance diet 2. DC IVF 3. Replete K 4. Creon started 5. DC abx 6. Follow up cultures. 7. Continue Norvasc 10, DC HCTZ 25 8. F/U heme-onc recs 9. Sliding scale insulin. 10. Monitor volumes. 11. DVT prophylaxis, heparin subcutaneous. 12. PPI. 13. DC home Subjective Interval Events: Better; tolerating diet Constitutional: Reports: no symptoms HEENT: Repors: no symptoms Respiratory: Reports: no symptoms Cardiovascular: Reports: no symptoms Gastrointestinal/Abdominal: Reports: no symptoms Genitourinary: Reports: no symptoms Neurologic: Reports: no symptoms Allergies: Coded Allergies: ACETAMINOPHEN (Verified Allergy, Unknown, 04/12/16) HYDROCODONE (Verified Allergy, Unknown, 04/12/16) Uncoded Allergies: NORCO (Allergy, Unknown, 04/12/16) Objective Last 24 Hour Vital Signs Date Time Temp Pulse Resp B/P (MAP) Pulse Ox O2 Delivery O2 Flow Rate FiO2 03/12/18 08:42 82 114/64 03/12/18 08:00 97.3 82 20 114/64 (81) 98 97.3 03/12/18 04:00 98.7 77 20 111/67 (82) 97 98.7 03/12/18 00:00 98.6 83 18 116/72 (87) 96 98.6 03/11/18 21:00 Room Air 03/11/18 20:00 97.6 98 19 104/68 (80) 95 97.6 03/11/18 17:54 97.9 03/11/18 16:55 97.9 03/11/18 15:24 97.9 98 18 140/71 (94) 98 97.9 03/11/18 12:19 97.5 87 18 142/78 (99) 99 97.5 Intake and Output 03/11/18 03/12/18 19:00 07:00 Intake Total 390 ml Output Total 950 ml Balance -560 ml Intake Oral 240 ml IV Total 150 ml Output Urine Total 950 ml # Voids 3 # Bowel Movements 1 General Appearance: no acute distress HEENT: normocephalic Cardiovascular: normal peripheral pulses, normal rate Abdomen: normal bowel sounds, soft, non tender Laboratory Tests 03/12/18 05:35: White Blood Count 11.3H, Red Blood Count 3.69L, Hemoglobin 9.6L, Hematocrit 29.4L, Mean Corpuscular Volume 80, Mean Corpuscular Hemoglobin 25.9L, Mean Corpuscular Hemoglobin Concent 32.5, Red Cell Distribution Width 12.7, Platelet Count 296, Mean Platelet Volume 5.7L, Neutrophils (%) (Auto) 77.3H, Lymphocytes (%) (Auto) 13.4L, Monocytes (%) (Auto) 8.2, Eosinophils (%) (Auto) 0.5, Basophils (%) (Auto) 0.6, Sodium Level 140, Potassium Level 3.2L, Chloride Level 104, Carbon Dioxide Level 29, Anion Gap 7, Blood Urea Nitrogen 7, Creatinine 0.9, Estimat Glomerular Filtration Rate , Glucose Level 142H, Calcium Level 9.0, Lipase 454H Current Medications Medications (Trade) Dose Ordered Sig/Rehan Route PRN Reason Start Time Stop Time Status Last Admin Dose Admin Al Hydroxide/Mg Hydroxide (Mylanta) 30 ml Q6H PRN ORAL Abdominal cramps 03/10/18 13:08 04/09/18 13:07 Amlodipine Besylate (Norvasc) 10 mg DAILY ORAL 03/09/18 09:00 04/07/18 08:59 03/11/18 08:32 Amylase/Lipase/ Protease (Pancrease) 2 ea THREE TIMES A DAY ORAL 03/10/18 09:00 04/09/18 08:59 03/12/18 08:40 Dextrose (Dextrose 50%) 25 ml STAT PRN IV Hypoglycemia 03/08/18 01:00 04/07/18 00:59 Dextrose (Dextrose 50%) 50 ml STAT PRN IV Hypoglycemia 03/08/18 01:00 04/07/18 00:59 Dextrose/ Electrolytes 1,000 ml @ 50 mls/hr Q20H IV 03/09/18 08:30 04/08/18 08:29 03/11/18 21:04 Diphenhydramine HCl (Benadryl) 25 mg Q6H PRN ORAL Itching 03/08/18 01:00 04/07/18 00:59 Docusate Sodium (Colace) 100 mg TWICE A DAY ORAL 03/08/18 09:00 04/07/18 08:59 03/12/18 08:39 Heparin Sodium (Porcine) (Heparin 5000 units/ml) 5,000 units EVERY 12 HOURS SUBQ 03/08/18 09:00 04/07/18 08:59 03/12/18 08:42 Hydrochlorothiazide (Hydrodiuril) 25 mg DAILY ORAL 03/09/18 09:00 04/08/18 08:59 03/12/18 08:39 Ibuprofen (Motrin) 600 mg Q4H PRN ORAL Mild Pain (Pain Scale 1-3) 03/08/18 01:00 04/07/18 00:59 Insulin Aspart (NovoLOG) BEFORE MEALS AND HS SUBQ 03/08/18 06:30 04/07/18 06:29 03/12/18 06:35 Metoclopramide HCl (Reglan) 10 mg Q4H PRN IVP Nausea & Vomiting 03/08/18 03:03 04/07/18 03:02 03/10/18 17:25 Ondansetron HCl (Zofran) 4 mg Q4H PRN IVP Nausea & Vomiting 03/08/18 03:03 04/07/18 03:02 03/10/18 14:51 Pantoprazole (Protonix) 40 mg DAILY ORAL 03/08/18 09:00 04/07/18 08:59 03/12/18 08:39 Piperacillin Sod/ Tazobactam Sod 3.375 gm/Sodium Chloride 110 ml @ 27.5 mls/hr Q8H IVPB 03/08/18 03:00 03/15/18 02:59 03/12/18 02:54 Simethicone (Mylicon) 80 mg QIDPRN PRN ORAL Abdominal cramps 03/10/18 13:00 04/09/18 12:59 Tramadol HCl (Ultram) 50 mg Q6H PRN ORAL Severe Pain (Pain Scale 7-10) 03/08/18 01:30 03/15/18 01:29 03/11/18 23:22 Zolpidem Tartrate (Ambien) 5 mg HSPRN PRN ORAL Insomnia 03/10/18 21:23 03/17/18 21:22 Bernard Hernandez MD Mar 12, 2018 09:18
[2018-03-12] MEDS ORDERED: NORVASC10 MG ORAL (09:22)
[2018-03-12] MEDS ORDERED: PANCREASE1 EA ORAL (09:22)
--- NOTE | 2018-03-12 11:09 | Infectious Diseases Prog Note ---
Assessment/Plan Assessment/Plan antibiotics : zosyn A 1. pancreatitis resolving 2. leucocytosis improving 3. breast cancer 4. diabetes mellitus P 1. zosyn dc 2. will follow up cultures Subjective Constitutional: Denies: fever, chills Respiratory: Denies: shortness of breath, dry cough Gastrointestinal/Abdominal: Denies: nausea, vomiting, diarrhea Musculoskeletal: Reports: pain - decreasing in abdomen Allergies: Coded Allergies: ACETAMINOPHEN (Verified Allergy, Unknown, 04/12/16) HYDROCODONE (Verified Allergy, Unknown, 04/12/16) Uncoded Allergies: NORCO (Allergy, Unknown, 04/12/16) Objective Vital Signs Last 24 Hour Vital Signs Date Time Temp Pulse Resp B/P (MAP) Pulse Ox O2 Delivery O2 Flow Rate FiO2 03/12/18 09:00 Room Air 03/12/18 08:42 82 114/64 03/12/18 08:00 97.3 82 20 114/64 (81) 98 97.3 03/12/18 04:00 98.7 77 20 111/67 (82) 97 98.7 03/12/18 00:00 98.6 83 18 116/72 (87) 96 98.6 03/11/18 21:00 Room Air 03/11/18 20:00 97.6 98 19 104/68 (80) 95 97.6 03/11/18 17:54 97.9 03/11/18 16:55 97.9 03/11/18 15:24 97.9 98 18 140/71 (94) 98 97.9 03/11/18 12:19 97.5 87 18 142/78 (99) 99 97.5 Height (Feet): 5 Height (Inches): 6.00 Weight (Pounds): 162 Respiratory/Chest: lungs clear Cardiovascular: normal rate, regular rhythm, no gallop/murmur Abdomen: soft, non tender Extremities: no edema Laboratory Tests Test 03/12/18 05:35 White Blood Count 11.3 K/UL (4.8-10.8) H Red Blood Count 3.69 M/UL (4.20-5.40) L Hemoglobin 9.6 G/DL (12.0-16.0) L Hematocrit 29.4 % (37.0-47.0) L Mean Corpuscular Volume 80 FL (80-99) Mean Corpuscular Hemoglobin 25.9 PG (27.0-31.0) L Mean Corpuscular Hemoglobin Concent 32.5 G/DL (32.0-36.0) Red Cell Distribution Width 12.7 % (11.6-14.8) Platelet Count 296 K/UL (150-450) Mean Platelet Volume 5.7 FL (6.5-10.1) L Neutrophils (%) (Auto) 77.3 % (45.0-75.0) H Lymphocytes (%) (Auto) 13.4 % (20.0-45.0) L Monocytes (%) (Auto) 8.2 % (1.0-10.0) Eosinophils (%) (Auto) 0.5 % (0.0-3.0) Basophils (%) (Auto) 0.6 % (0.0-2.0) Sodium Level 140 MMOL/L (136-145) Potassium Level 3.2 MMOL/L (3.5-5.1) L Chloride Level 104 MMOL/L (98-107) Carbon Dioxide Level 29 MMOL/L (21-32) Anion Gap 7 mmol/L (5-15) Blood Urea Nitrogen 7 mg/dL (7-18) Creatinine 0.9 MG/DL (0.55-1.30) Estimat Glomerular Filtration Rate mL/min (>60) Glucose Level 142 MG/DL (74-106) H Calcium Level 9.0 MG/DL (8.5-10.1) Lipase 454 U/L (73-393) H Current Medications Medications (Trade) Dose Ordered Sig/Rehan Route PRN Reason Start Time Stop Time Status Last Admin Dose Admin Al Hydroxide/Mg Hydroxide (Mylanta) 30 ml Q6H PRN ORAL Abdominal cramps 03/10/18 13:08 04/09/18 13:07 Amlodipine Besylate (Norvasc) 10 mg DAILY ORAL 03/09/18 09:00 04/07/18 08:59 03/11/18 08:32 Amylase/Lipase/ Protease (Pancrease) 2 ea THREE TIMES A DAY ORAL 03/10/18 09:00 04/09/18 08:59 03/12/18 08:40 Dextrose (Dextrose 50%) 25 ml STAT PRN IV Hypoglycemia 03/08/18 01:00 04/07/18 00:59 Dextrose (Dextrose 50%) 50 ml STAT PRN IV Hypoglycemia 03/08/18 01:00 04/07/18 00:59 Diphenhydramine HCl (Benadryl) 25 mg Q6H PRN ORAL Itching 03/08/18 01:00 04/07/18 00:59 Docusate Sodium (Colace) 100 mg TWICE A DAY ORAL 03/08/18 09:00 04/07/18 08:59 03/12/18 08:39 Heparin Sodium (Porcine) (Heparin 5000 units/ml) 5,000 units EVERY 12 HOURS SUBQ 03/08/18 09:00 04/07/18 08:59 03/12/18 08:42 Ibuprofen (Motrin) 600 mg Q4H PRN ORAL Mild Pain (Pain Scale 1-3) 03/08/18 01:00 04/07/18 00:59 Insulin Aspart (NovoLOG) BEFORE MEALS AND HS SUBQ 03/08/18 06:30 04/07/18 06:29 03/12/18 06:35 Metoclopramide HCl (Reglan) 10 mg Q4H PRN IVP Nausea & Vomiting 03/08/18 03:03 04/07/18 03:02 03/10/18 17:25 Ondansetron HCl (Zofran) 4 mg Q4H PRN IVP Nausea & Vomiting 03/08/18 03:03 04/07/18 03:02 03/10/18 14:51 Pantoprazole (Protonix) 40 mg DAILY ORAL 03/08/18 09:00 04/07/18 08:59 03/12/18 08:39 Potassium Chloride (K-Dur) 20 meq ONCE ORAL 03/12/18 10:00 03/12/18 11:30 03/12/18 10:25 Simethicone (Mylicon) 80 mg QIDPRN PRN ORAL Abdominal cramps 03/10/18 13:00 04/09/18 12:59 Tramadol HCl (Ultram) 50 mg Q6H PRN ORAL Severe Pain (Pain Scale 7-10) 03/08/18 01:30 03/15/18 01:29 03/11/18 23:22 Zolpidem Tartrate (Ambien) 5 mg HSPRN PRN ORAL Insomnia 03/10/18 21:23 03/17/18 21:22 MAY DO Mar 12, 2018 11:09
[2018-03-12 12:00] VITALS: BP 126/73
--- NOTE | 2018-03-12 13:15 | GI Progress Note ---
Assessment/Plan Problems: (1) Gastritis ICD Codes: K29.70 - Gastritis SNOMED: 9701083 (2) Anemia ICD Codes: D64.9 - Anemia SNOMED: 361918040 (3) Dehydration ICD Codes: E86.0 - Dehydration SNOMED: 96523955 (4) Intractable vomiting ICD Codes: R11.10 - Vomiting, unspecified SNOMED: 576968626 Qualifiers: Qualified Codes: R11.2 - Nausea with vomiting, unspecified (5) Pancreatitis ICD Codes: K85.9 - Pancreatitis SNOMED: 51080206 Qualifiers: Qualified Codes: K86.1 - Other chronic pancreatitis (6) Persistent vomiting ICD Codes: R11.10 - Vomiting, unspecified SNOMED: 648982890 (7) Abdominal pain ICD Codes: R10.9 - Unspecified abdominal pain SNOMED: 03923870 Status: stable Status Narrative Discussed with Dr. Agustin. Assessment/Plan CT reviewed lipid panel reviewed breast CA defer any GI procedures, symptomatic treatment add Creon reglan prn advance diet as tolerated repeat labs dc planning The patient was seen and examined at bedside and all new and available data was reviewed in the patients chart. I agree with the above findings, impression and plan. (Patient seen earlier today. Signature stamp does not reflect patient encounter time.). - Rhett Agustin MD Subjective Gastrointestinal/Abdominal: Reports: no symptoms Objective Last 24 Hour Vital Signs Date Time Temp Pulse Resp B/P (MAP) Pulse Ox O2 Delivery O2 Flow Rate FiO2 03/12/18 12:00 97.7 82 22 126/73 (90) 98 97.7 03/12/18 09:00 Room Air 03/12/18 08:42 82 114/64 03/12/18 08:00 97.3 82 20 114/64 (81) 98 97.3 03/12/18 04:00 98.7 77 20 111/67 (82) 97 98.7 03/12/18 00:00 98.6 83 18 116/72 (87) 96 98.6 03/11/18 21:00 Room Air 03/11/18 20:00 97.6 98 19 104/68 (80) 95 97.6 03/11/18 17:54 97.9 03/11/18 16:55 97.9 03/11/18 15:24 97.9 98 18 140/71 (94) 98 97.9 Intake and Output 03/11/18 03/12/18 19:00 07:00 Intake Total 390 ml 50 ml Output Total 950 ml Balance -560 ml 50 ml Intake Oral 240 ml IV Total 150 ml 50 ml Output Urine Total 950 ml # Voids 3 # Bowel Movements 1 Laboratory Tests Test 03/12/18 05:35 White Blood Count 11.3 K/UL (4.8-10.8) H Red Blood Count 3.69 M/UL (4.20-5.40) L Hemoglobin 9.6 G/DL (12.0-16.0) L Hematocrit 29.4 % (37.0-47.0) L Mean Corpuscular Volume 80 FL (80-99) Mean Corpuscular Hemoglobin 25.9 PG (27.0-31.0) L Mean Corpuscular Hemoglobin Concent 32.5 G/DL (32.0-36.0) Red Cell Distribution Width 12.7 % (11.6-14.8) Platelet Count 296 K/UL (150-450) Mean Platelet Volume 5.7 FL (6.5-10.1) L Neutrophils (%) (Auto) 77.3 % (45.0-75.0) H Lymphocytes (%) (Auto) 13.4 % (20.0-45.0) L Monocytes (%) (Auto) 8.2 % (1.0-10.0) Eosinophils (%) (Auto) 0.5 % (0.0-3.0) Basophils (%) (Auto) 0.6 % (0.0-2.0) Sodium Level 140 MMOL/L (136-145) Potassium Level 3.2 MMOL/L (3.5-5.1) L Chloride Level 104 MMOL/L (98-107) Carbon Dioxide Level 29 MMOL/L (21-32) Anion Gap 7 mmol/L (5-15) Blood Urea Nitrogen 7 mg/dL (7-18) Creatinine 0.9 MG/DL (0.55-1.30) Estimat Glomerular Filtration Rate mL/min (>60) Glucose Level 142 MG/DL (74-106) H Calcium Level 9.0 MG/DL (8.5-10.1) Lipase 454 U/L (73-393) H Height (Feet): 5 Height (Inches): 6.00 Weight (Pounds): 162 General Appearance: WD/WN, no apparent distress, alert Cardiovascular: normal rate Respiratory/Chest: normal breath sounds, no respiratory distress Abdominal Exam: normal bowel sounds, non tender, soft Extremities: normal range of motion, non-tender Janet Polanco NP Mar 12, 2018 13:15
--- NOTE | 2018-03-14 12:45 | Discharge Summary ---
Discharge Summary Discharge Summary _ DATE OF ADMISSION: 03/07/2018 DATE OF DISCHARGE: 03/12/2018 REASON FOR ADMISSION: 72 years old female with history of hypertension ,diabetes ,recurrent pancreatitis, bilateral breast cancer ,status post bilateral mastectomy, currently on chemotherapy ; status post cholecystectomy due to gallstone pancreatitis, history of pancreatic pseudocyst , presented with several days of nausea and vomiting. Patient was unable to keep fluids down and felt dehydrated. No fever , no chills. No headache or dizziness. No cough, no shortness of breath, no chest pain. No diarrhea. Upon evaluation vital signs were stable. Laboratory workup revealed leukocytosis with WBC 16.4. Hemoglobin 11.6, hematocrit 35.7. Potassium 3.3. Troponin was negative. EKG revealed normal sinus rhythm, no acute ischemic changes. Lipase elevated -521. LFT stable. Urinalysis with pyuria and moderate bacteria. Chest x-ray revealed bilateral basilar atelectatic changes. Abdominal x-ray revealed no acute process. Patient admitted for further management with diagnoses of acute on chronic pancreatitis, history of pancreatic pseudocyst, history of gallstone pancreatitis, status post cholecystectomy, probably urinary tract infection, breast cancer status post mastectomy and currently on chemotherapy, hypertension , diabetes mellitus, hypokalemia. CONSULTANTS: ID specialist Dr. Crandall GI specialist Dr. Agustin [place] lever[facility]/oncologist Dr. Choudhury [facility] COURSE: Patient admitted. Patient initially was nothing by mouth and started on IV hydration. Electrolytes were closely monitored and corrected as needed. Renal parameters were closely monitored, and nephrotoxins were avoided. Patient started on empiric antibiotics. GI and ID consults were requested. Urine culture revealed mixed gram-positive organisms. Leukocytosis trending down-11.3 prior to discharge. Antibiotic discontinued prior to discharge. Leukocytosis was likely due to acute pancreatitis. GI closely follow patient. Abdominal ultrasound revealed 11.3 x 6.5 cm cystic pancreatic tail mass. Most likely representing pseudocyst, given clinical history of pancreatitis and pseudocyst. Possibility of cystic pancreatic neoplasm should be considered. No dilated ducts Patient subsequently undergone CT of the abdomen and pelvis to evaluate pseudocyst. Imaging revealed findings suggesting interstitial pancreatitis in the pancreatic tail. No visible focal pancreatic parenchymal necrosis was seen. 8.1 x 7.9 x 7.8 cm lobulated pancreatic pseudocyst at the tail. Descending and sigmoid colonic diverticulosis. Wall thickening of the colonic splenic flexure and proximal descending colon and wall thickening of the gastric body and antrum likely secondary to inflammation related to the adjacent pancreatic inflammatory process. Compressive atelectasis and small bilateral pleural effusion. Patient slowly started on diet as tolerated. Supportive care provided. Antiemetics provided as needed. . Creon was added to existing regimen. Patient was able to tolerate diet. Lipid panel was stable. Lipase was trending down. GI procedure was deferred at this time. Patient tolerated diet. GI cleared patient for discharge. Blood pressure was managed with antihypertensive regimen and remained stable. Blood sugar was managed with sliding scale of insulin. Volumes were closely monitored. DVT and GI prophylaxis provided. Oncologist seen and evaluated the patient. Patient had metastatic breast cancer and currently was on chemotherapy. Oncologist recommended to continue chemotherapy when discharged. Patient will need repeat liver panel and chemistry prior to reinitiation of chemotherapy. Oncologist recommended imaging every 3-6 months with PET/CT as per patient' s oncology management . Follow up with tumor markers to monitor response to chemotherapy[. Hemoglobin and hematocrit were closely monitored. No need for transfusion. Per [place], patient had anemia of underlying chronic disease. Anemia workup was recommended only if hemoglobin drops below 8. Patient with known history of DVT ,status post IVC filter. No recurrence of PE or DVT at this time. Patient was stabilized and ready for discharge home FINAL DIAGNOSES: Acute on chronic pancreatitis Cystic pancreatic tail mass, likely pseudocyst (with history of prior pseudocyst as well) History of gallstone pancreatitis, status post cholecystectomy Anemia of chronic disease Metastatic breast cancer, on chemotherapy Diabetes mellitus Hypertension Hypokalemia Dehydration DISCHARGE MEDICATIONS: See Medication Reconciliation list. DISCHARGE INSTRUCTIONS: Patient was discharged home Follow up with primary care provider in one week. Follow up with oncologst for continaution of cehmotherpay. I have been assigned to dictate discharge summary for this account. I was not involved in the patient's management. Salud Montiel NP Mar 14, 2018 12:45
--- NOTE | 2018-03-15 00:52 | Cardiology Report ---
APPROVED REPORT EKG Measurement Heart [id number] Normal sinus rhythm Possible Left atrial enlargement Nonspecific ST abnormality Abnormal ECG
== END 2018-03-12 15:05 | disposition home or self-care (01) | DRG 439 ==
LOC: EMR 20:03 → 4E 21:30 → EDBEDREQ 22:45
DX: K85.90 Acute pancreatitis without necrosis or infection, unspecified (principal); N39.0 Urinary tract infection, site not specified; K86.3 Pseudocyst of pancreas; C79.9 Secondary malignant neoplasm of unspecified site; K86.1 Other chronic pancreatitis; C50.919 Malignant neoplasm of unspecified site of unspecified female breast; Z79.899 Other long term (current) drug therapy; E11.9 Type 2 diabetes mellitus without complications; Z88.6 Allergy status to analgesic agent; E87.6 Hypokalemia; Z90.10 Acquired absence of unspecified breast and nipple; I10 Essential (primary) hypertension; D63.8 Anemia in other chronic diseases classified elsewhere; Z90.49 Acquired absence of other specified parts of digestive tract; K57.90 Diverticulosis of intestine, part unspecified, without perforation or abscess without bleeding; Z86.718 Personal history of other venous thrombosis and embolism; Z87.891 Personal history of nicotine dependence; K29.70 Gastritis, unspecified, without bleeding; K29.80 Duodenitis without bleeding; D64.9 Anemia, unspecified; E86.0 Dehydration; Z66 Do not resuscitate
CPT/HCPCS: 36415; 71045; 74018; 74177; 76700; 80048; 80053; 80061; 81003; 82150; 82270; 82746; 82962; 83540; 83550; 83690; 84484; 85025; 85610; 85730; 87086; 93005; J1815; J2405; J2765; J8499

== ENCOUNTER 2019-04-03 09:39 | Emergency (ER) | payer MEDICARE, OTHER ==
[~2019-04-03] VITALS: Ht 167.6 cm; Wt 78.0 kg
[~2019-04-03 09:39] MED LIST changes: +NORVASC10 MG ORAL; +PANCREASE1 EA ORAL; +TYLENOL EXTRA500 MG ORAL
[2019-04-03 10:16] VITALS: BP 141/70
--- NOTE | 2019-04-03 10:16 | NUR ---
ED Nurse Note: Pt from home came in due to rigth side abd. pain since 12am this morning with [place] and vomiting of bile and dark red emesis. Hx of gall bladder removal last year. Pt also has mastectomy on her right breast and precautions implemented on her right arm. AAO x4 and ambulatory with non labored breathing.
--- NOTE | 2019-04-03 10:58 | Emergency Room Report ---
History of Present Illness General Chief Complaint: Abdominal Pain Source: Patient Present Illness HPI Disclaimer: Please note that this report is being documented using [employer] technology. This can lead to erroneous entry secondary to incorrect interpretation by the dictating instrument. HPI: 73-year-old female with a history of hypertension, breast cancer status post mastectomy chemo and radiation, diabetes presents for evaluation of abdominal pain. Symptoms present for several days. She has been having dark red and coffee-ground emesis starting yesterday. She complains of right lower quadrant abdominal pain that is intermittent but then intensified overnight. She denies diarrhea. Notes urinary frequency but denies foul smell urgency or hematuria. Denies rectal bleeding or melena. Prior cholecystectomy. Notes fatigue and weakness and dehydration. PMH: Breast cancer, hypertension, diabetes PSH: Cholecystectomy, right-sided mastectomy Allergies: Hydrocodone, [place] Social Hx: Denies drug or alcohol abuse Allergies: Coded Allergies: ACETAMINOPHEN (Verified Allergy, Unknown, 04/12/16) HYDROCODONE (Verified Allergy, Unknown, 04/12/16) Uncoded Allergies: NORCO (Allergy, Unknown, 04/12/16) Nursing Documentation-PMH Past Medical History: No History, Except For Hx Cardiac Problems: Yes Hx Hypertension: Yes Hx COPD: No - mastectomy on rt side. Hx Diabetes: Yes Hx Cancer: No Hx Gastrointestinal Problems: Yes Hx Neurological Problems: No Review of Systems All Other Systems: negative except mentioned in HPI Physical Exam Vital Signs Date Time Temp Pulse Resp B/P (MAP) Pulse Ox O2 Delivery O2 Flow Rate FiO2 04/03/19 10:06 98.2 75 24 152/82 (105) 96 Room Air General: Awake and alert, no acute distress HEENT: NC/AT. EOMI. dry mucous membranes Chest Wall: No tenderness, right mastectomy Cardiovascular: RRR. S1 and S2 normal. No murmur appreciated Resp: Normal work of breathing. No cough, wheezing or crackles appreciated Abdomen: Abdomen is soft, nondistended. Tenderness in the right lower quadrant without rebound. Some periumbilical tenderness. No significant tenderness in the right lower quadrants or the upper quadrants bilaterally. Skin: Intact. No abrasions, laceration or rash over the exposed skin MSK: Normal tone and bulk. Moving all extremities. No obvious deformity. Neuro: Awake and alert. Mentating appropriately. Back/Spine: No midline tenderness in the cervical, thoracic or lumbosacral spine. There is right-sided CVA tenderness. Medical Decision Making Diagnostic Impression: Primary Impression: Urinary tract infection Additional Impressions: Abdominal pain Adrenal mass Hiatal hernia Femoral hernia Lung nodule ER Course 73-year-old female presents for evaluation of right lower quadrant and right- sided flank pain for several days with coffee-ground emesis. Differential includes was not limited to gastritis, upper GI bleed, nephrolithiasis, appendicitis, bowel obstruction gastroenteritis. The patient will be started on IV fluids, IV Protonix, type and screen will be sent, GI work-up including CT scan of the abdomen. Likely require admission. Laboratory Tests Test 04/03/19 11:00 White Blood Count 8.6 K/UL (4.8-10.8) Red Blood Count 5.06 M/UL (4.20-5.40) Hemoglobin 13.8 G/DL (12.0-16.0) Hematocrit 42.0 % (37.0-47.0) Mean Corpuscular Volume 83 FL (80-99) Mean Corpuscular Hemoglobin 27.3 PG (27.0-31.0) Mean Corpuscular Hemoglobin Concent 32.8 G/DL (32.0-36.0) Red Cell Distribution Width 12.6 % (11.6-14.8) Platelet Count 214 K/UL (150-450) Mean Platelet Volume 5.7 FL (6.5-10.1) L Neutrophils (%) (Auto) 78.4 % (45.0-75.0) H Lymphocytes (%) (Auto) 15.8 % (20.0-45.0) L Monocytes (%) (Auto) 5.1 % (1.0-10.0) Eosinophils (%) (Auto) 0.1 % (0.0-3.0) Basophils (%) (Auto) 0.7 % (0.0-2.0) Urine Color Pale yellow Urine Appearance Clear Urine pH 7 (4.5-8.0) Urine Specific [place] 1.010 (1.005-1.035) Urine Protein Negative (NEGATIVE) Urine Glucose (UA) 4+ (NEGATIVE) H Urine Ketones 1+ (NEGATIVE) H Urine Blood 2+ (NEGATIVE) H Urine Nitrite Negative (NEGATIVE) Urine Bilirubin Negative (NEGATIVE) Urine Urobilinogen Normal MG/DL (0.0-1.0) Urine Leukocyte Esterase 3+ (NEGATIVE) H Urine RBC 2-4 /HPF (0 - 2) H Urine WBC 30-40 /HPF (0 - 2) H Urine Squamous Epithelial Cells Many /LPF (NONE/OCC) H Urine Bacteria Few /HPF (NONE) Urine Yeast Moderate /HPF (NONE) H Sodium Level 138 MMOL/L (136-145) Potassium Level 3.8 MMOL/L (3.5-5.1) Chloride Level 100 MMOL/L (98-107) Carbon Dioxide Level 29 MMOL/L (21-32) Anion Gap 9 mmol/L (5-15) Blood Urea Nitrogen 9 mg/dL (7-18) Creatinine 0.9 MG/DL (0.55-1.30) Estimate Glomerular Filtration Rate mL/min (>60) Glucose Level 269 MG/DL (74-106) H Calcium Level 9.9 MG/DL (8.5-10.1) Total Bilirubin 0.6 MG/DL (0.2-1.0) Aspartate Amino Transferase (AST) 15 U/L (15-37) Alanine Aminotransferase (ALT) 17 U/L (12-78) Alkaline Phosphatase 116 U/L (46-116) Total Protein 8.7 G/DL (6.4-8.2) H Albumin 4.0 G/DL (3.4-5.0) Globulin 4.7 g/dL Albumin/Globulin Ratio 0.9 (1.0-2.7) L Lipase 153 U/L (73-393) Reevaluation Time: 15:00 Last Vital Signs Date Time Temp Pulse Resp B/P (MAP) Pulse Ox O2 Delivery O2 Flow Rate FiO2 04/03/19 10:16 80 19 Room Air 04/03/19 10:16 98.2 141/70 100 Status: improved Reevaluation Impression Lab work is returned largely unremarkable aside from evidence of an acute urinary tract infection. The patient was treated with 1 g of ceftriaxone in the emergency department. Her symptoms are improving. CT scan showed no evidence of acute intra-abdominal pathology but did redemonstrate adrenal mass which patient is aware of, hiatal and femoral hernias which she is aware of and a lung mass which the patient is also aware of. She may follow-up for these chronic findings with her PMD. She will be prescribed Zofran, Macrobid for treatment of urinary tract infection and symptomatic management. She is able to eat and drink in the emergency department and would like to be discharged home. She can follow-up with her PMD for reevaluation in the next few days. Discussed reasons to return to the emergency department as well as need for follow-up of CT findings. She understands and agrees with this treatment plan will be discharged home. Disposition: HOME, SELF-CARE Condition: Improved Scripts Ondansetron Odt* (ZOFRAN ODT*) 4 Mg Tab.rapdis 4 MG BC EVERY 6 HOURS PRN for Nausea & Vomiting, #20 TAB 0 Refills Prov: Perry Kiser MD 04/03/19 Nitrofurantoin Monohyd/M-Cryst* (MACROBID 100 MG*) 100 Mg Capsule 100 MG ORAL EVERY 12 HOURS for 7 Days, #14 CAP Prov: Perry Kiser MD 04/03/19 Referrals: NON PHYSICIAN (PCP) Perry Kiser MD Apr 03, 2019 10:58
[2019-04-03] MEDS ORDERED: Pantoprazole Inj IV ONE (11:00)
[2019-04-03] MEDS ORDERED: Isovue-300 100ml vial INJ PRN (11:00)
[2019-04-03 11:18] LABS: BASOPHILS % (AUTO) 0.7 % (0.0-2.0); EOSINOPHILS % (AUTO) 0.1 % (0.0-3.0); HEMOGLOBIN 13.8 G/DL (12.0-16.0); LYMPHOCYTES % (AUTO) 15.8 % (20.0-45.0); MEAN CORPUSCULAR VOLUME 83 FL (80-99); MONOCYTES % (AUTO) 5.1 % (1.0-10.0); NEUTROPHILS % (AUTO) 78.4 % (45.0-75.0); PLATELET COUNT 214 K/UL (150-450); RED BLOOD COUNT 5.06 M/UL (4.20-5.40); RED CELL DISTRIBUTION WIDTH 12.6 % (11.6-14.8); WHITE BLOOD COUNT 8.6 K/UL (4.8-10.8)
[2019-04-03 11:23] LABS: APPEARANCE,URINE CLEAR; BILIRUBIN, URINE NEGATIVE (NEGATIVE); COLOR,URINE PALE YELLOW; GLUCOSE, URINE (UA) 4+ (NEGATIVE); KETONES,URINE 1+ (NEGATIVE); LEUKOCYTE ESTERASE ,URINE 3+ (NEGATIVE); NITRITE,URINE NEGATIVE (NEGATIVE); PH,URINE 7 (4.5-8.0); PROTEIN,URINE NEGATIVE (NEGATIVE); UROBILINOGEN,URINE NORMAL MG/DL (0.0-1.0)
[2019-04-03 11:29] LABS: ANION GAP 9 mmol/L (5-15); BLOOD UREA NITROGEN 9 mg/dL (7-18); CALCIUM 9.9 MG/DL (8.5-10.1); CARBON DIOXIDE 29 MMOL/L (21-32); CHLORIDE 100 MMOL/L (98-107); CREATININE 0.9 MG/DL (0.55-1.30); POTASSIUM 3.8 MMOL/L (3.5-5.1); SODIUM 138 MMOL/L (136-145)
[2019-04-03 11:42] LABS: ALANINE AMINOTRANSFERASE 17 U/L (12-78); ALBUMIN/GLOBULIN RATIO 0.9 (1.0-2.7); ALKALINE PHOSPHATASE 116 U/L (46-116); ASPARTATE AMINO TRANSFERASE 15 U/L (15-37); BILIRUBIN,TOTAL 0.6 MG/DL (0.2-1.0)
[2019-04-03 12:29] VITALS: BP 176/90
[2019-04-03] MEDS ORDERED: cefTRIAXone 1 GM in NS 55 ML IVPB ONE (12:30)
--- NOTE | 2019-04-03 13:03 | Diagnostic Imaging Report ---
Indication: Abdominal pain Technique: Continuous helical transaxial imaging of the abdomen and pelvis was obtained from the lung bases to the pubic symphysis during intravenous contrast administration. Coronal 2-D reformats were also obtained. Study obtained in a Siemens sensation [address] Automatic Exposure Control was utilized. Total Dose length Product (DLP): 748.[address] Dose Index Volume (CTDIvol): 13.88 mGy Comparison: None Findings: There is a pleural-based nodule at the right lung base containing eccentric calcification measuring 1.4 cm. This is poorly seen on the prior study because of a pleural effusion and consolidation of the lung at that time but in retrospect was present. This could be a hamartoma or calcified granuloma. There is a moderate to large hiatal hernia present. Cholecystectomy clips are present. IVC filter noted. Moderate calcification of aorta demonstrated. Diverticula is demonstrated throughout the colon. No definite diverticulitis appreciated. There is no free fluid or free air. The bladder is unremarkable. There is no hydronephrosis. There is a vaginal pessary noted. There is a small left adrenal mass measuring 1.5 cm. Spleen is unremarkable. Appendix is not seen but no secondary signs of acute appendicitis appreciated. Uterus is absent. Previous examination showed a large cystic focus in the upper abdomen associated with the body of the pancreas. This is not no longer visualized. The tail the pancreas is absent. There is fatty focus noted anterior to the right femoral artery and vein consistent with a femoral hernia. This was present previously. IMPRESSION: No acute findings are appreciated currently. Interval resolution of a large pancreatic pseudocyst previously demonstrated in the area of the pancreatic body/tail. This may been surgically resected or percutaneously treated. 1.5 cm left adrenal mass unchanged. 1.5 cm partially calcified nodule right lung base unchanged probably calcified granuloma. Diverticulosis of the colon. No definite diverticulitis. Fat-containing right femoral hernia. Apparent hysterectomy. Vaginal pessary noted. IVC filter Atherosclerotic vascular disease Moderate size hiatal hernia. The CT scanner at [facility] is accredited by the [employer] and the scans are performed using dose optimization techniques as appropriate to a performed exam including Automatic Exposure control.
[2019-04-03] MEDS ORDERED: Morphine Sulfate 2mg/ml Inj(IV/IM USE ONLY) IVP ONE (13:45)
[2019-04-03] MEDS ORDERED: NITROFURANTOIN100 M2 ORAL (14:19)
[2019-04-03 14:30] VITALS: BP 157/88
[2019-04-03] MEDS ORDERED: ONDANSETRON ODT4 MG BC (14:47)
--- NOTE | 2019-04-03 15:10 | NUR ---
ED Nurse Note: Pt reports lesser abd pain 4/10 after medications. VSS.
[2019-04-03 15:35] VITALS: BP 144/73
--- NOTE | 2019-04-03 15:35 | NUR ---
ER DISCHARGE NOTE: Patient is cleared to be discharged per ERMD, pt is aox4, on room air, with stable vital signs. pt was given dc and prescription instructions, pt was able to verbalize understanding, pt id band and iv site removed without complications. pt is able to ambulate with steady gait. pt took all belongings and left with a family member.
== END 2019-04-03 15:35 | disposition home or self-care (01) ==
LOC: EMR 10:34
DX: N39.0 Urinary tract infection, site not specified (principal); K44.9 Diaphragmatic hernia without obstruction or gangrene; K41.90 Unilateral femoral hernia, without obstruction or gangrene, not specified as recurrent; R91.1 Solitary pulmonary nodule; R10.9 Unspecified abdominal pain; E27.9 Disorder of adrenal gland, unspecified; E11.9 Type 2 diabetes mellitus without complications; I10 Essential (primary) hypertension; Z90.12 Acquired absence of left breast and nipple; Z88.6 Allergy status to analgesic agent; Z90.49 Acquired absence of other specified parts of digestive tract; Z85.3 Personal history of malignant neoplasm of breast
CPT/HCPCS: 36415; 74177; 80053; 81003; 83690; 85025; 86850; 86900; 86901; 87086; 96361; 96365; 96375; 96376; 99284; C9113; J0696; J2270; J2405; Q9967; S0028